=== PATIENT | male | born 1935 | race Caucasian/White ===

== ENCOUNTER 2019-07-18 17:48 | Inpatient (IN) | payer OTHER ==
[~2019-07-18] VITALS: Ht 177.8 cm; Wt 78.0 kg
--- NOTE | 2019-07-18 17:48 | NUR ---
PT PLACED IN BED 10 BY EMS.
--- NOTE | 2019-07-18 17:48 | NUR ---
RT AT BEDSIDE
[2019-07-18 17:54] VITALS: BP 134/95
[2019-07-18] MEDS ORDERED: DEXAMETHASONE 10 MG/ML VIAL IVP ONE (17:55)
--- NOTE | 2019-07-18 17:56 | NUR ---
XRAY AT BEDSIDE
[2019-07-18 17:58] VITALS: BP 139/73
--- NOTE | 2019-07-18 18:04 | NUR ---
LAB AT BEDSIDE
[2019-07-18] MEDS ORDERED: ATRN INH (18:06)
[2019-07-18] MEDS ORDERED: FLUT1DSK4 IH (18:06)
[2019-07-18] MEDS ORDERED: ACLI400A2 IH (18:06)
[2019-07-18] MEDS ORDERED: VITD1000 PO (18:06)
[2019-07-18] MEDS ORDERED: ZAFI10TA PO (18:06)
[2019-07-18] MEDS ORDERED: CARV6.25 PO (18:06)
[2019-07-18] MEDS ORDERED: ASPI-1718 PO (18:06)
[2019-07-18] MEDS ORDERED: OSC500 PO (18:06)
[2019-07-18] MEDS ORDERED: ISOS10TA9 PO (18:06)
[2019-07-18] MEDS ORDERED: TAMS0.4C96 PO (18:06)
[2019-07-18] MEDS ORDERED: FISH10005 PO (18:06)
[2019-07-18] MEDS ORDERED: [UNRECOGNIZED DRUG - CODE] PO (18:06)
[2019-07-18] MEDS ORDERED: ESCI20TA PO (18:06)
[2019-07-18] MEDS ORDERED: FINA5TAB1 PO (18:06)
[2019-07-18] MEDS ORDERED: GABA100C PO (18:06)
[2019-07-18] MEDS ORDERED: SIMV40TA1 PO (18:06)
[2019-07-18] MEDS ORDERED: PRON INH (18:06)
[2019-07-18] MEDS ORDERED: POTA8TER12 PO (18:06)
[2019-07-18] MEDS ORDERED: LISI5TAB18 PO (18:06)
--- NOTE | 2019-07-18 18:06 | NUR ---
BIBA FROM HOME C/O SOB APPROX 1 HOUR PRIOR TO ARRIVAL. PER EMS, PT WAS AT 75% RA AND THEN PLACED ON BIPAP. NOW AT 92%. PATIENT TOOK 4 ALBUTERL TX AT HOME AND RECIEVED 1 TX IN ROUTE BY EMS. 12 LEAD- NSR. TACHYPNEA. PERIPHERAL EDEMA TO LOWER EXTREMETIES. PT NOT PREVIOSLY INTUBATED. AA0X4. BED IS DOWN, LOCKED, BED RAIL X 2, ERMD TO SEE PT. PMH- ASTHMA AND CAD RX- SEE MED LIST
--- NOTE | 2019-07-18 18:10 | NUR ---
LUNGS DIMINISHED BILATERALLY. NON-PRODUCTIVE COUGH
[2019-07-18 18:21] LABS: BASOPHILS % (AUTO) 0.3 % (0.0-2.0); EOSINOPHILS # (AUTO) 0.1 K/uL (0-0.4); EOSINOPHILS % (AUTO) 0.7 % (0.0-4.0); HEMATOCRIT 41.6 % (36-52); HEMOGLOBIN 13.5 g/dL (12.0-18.0); LYMPHOCYTES # (AUTO) 1.1 K/uL (2.0-11.5); LYMPHOCYTES % (AUTO) 7.5 % (20.5-51.1); MEAN CORPUSCULAR HEMOGLOBIN 29 pg (27-31); MEAN CORPUSCULAR HGB CONC 32 g/dL (33-37); MONOCYTES # (AUTO) 0.6 K/uL (0.8-1.0); MONOCYTES % (AUTO) 3.9 % (1.7-9.3); NEUTROPHILS # (AUTO) 12.8 K/uL (1.8-7.7); NEUTROPHILS % (AUTO) 87.6 % (42.2-75.2); PLATELET COUNT (AUTO) 168 K/uL (140-450); RED BLOOD CELL COUNT(AUTO) 4.62 MIL/uL (4.20-6.10); RED CELL DISTRIBUTION WIDTH 14.5 % (11.6-13.7); WHITE BLOOD COUNT (AUTO) 14.6 K/uL (4.8-10.8)
--- NOTE | 2019-07-18 18:27 | NUR ---
FAMILY AT BEDSIDE
[2019-07-18] MEDS ORDERED: FUROSEMIDE 40 MG/4 ML VIAL IVP ONE (18:30)
[2019-07-18 18:33] LABS: ANION GAP 9.8 (8-16); CARBON DIOXIDE 27.8 mmol/L (21-32); CHLORIDE 108 mmol/L (98-107); CREATININE 0.7 mg/dL (0.7-1.3); GLUCOSE 159 mg/dL (74-106); POTASSIUM 3.6 mmol/L (3.5-5.1); SODIUM SERUM 142 mmol/L (136-145); UREA NITROGEN, BLOOD 17 mg/dL (7-18)
[2019-07-18 18:38] LABS: ALBUMIN 3.2 g/dL (3.4-5.0); ASPARTATE AMINOTRANSFERASE 14 U/L (15-37); TOTAL BILIRUBIN 0.4 mg/dL (0.0-1.0)
--- NOTE | 2019-07-18 18:53 | NUR ---
DR MORALES AT BEDSIDE SPEAKING WITH FAMILY
--- NOTE | 2019-07-18 18:54 | NUR ---
PMH- ASTHMA, COPD, CAD
--- NOTE | 2019-07-18 19:11 | NUR ---
REPORT GIVEN TO CHRISTIANNE SIDHU
--- NOTE | 2019-07-18 19:12 | NUR ---
REPORT RECEIVED FROM NAHUM CHAVEZ. TRANSFER OF CARE AT THIS TIME.
--- NOTE | 2019-07-18 19:13 | NUR ---
PT AWAKE, A/O X 4. BIPAP MASK IN PLACE. SPO2 97%. PT DENIES DISCOMFORT/DISTRESS AT THIS TIME. GIVES THUMBS UP RESPONSE. AT BEDSIDE.
--- NOTE | 2019-07-18 20:00 | NUR ---
PT PRODUCED DARK YELLOW URINE IN URINAL. URINE SPECIMEN COLLECTED.
[2019-07-18] MEDS ORDERED: HYDROcodone/APAP 7.5/325 MG 1 TAB PO PRN (20:30)
[2019-07-18] MEDS ORDERED: ONDANSETRON 4 MG/2 ML VIAL IVP PRN (20:30)
--- NOTE | 2019-07-18 20:30 | NUR ---
PT RESTING IN BED WITH VSS. BIPAP IN PLACE. DENIES PAIN, DISTRESS AT THIS TIME.
--- NOTE | 2019-07-18 21:00 | NUR ---
Patient will be admitted to care of Dr. Bryant. Admited to TELE. Will go to room 122A. Belongings list completed. Report to NAHUM Chavez.
--- NOTE | 2019-07-18 21:00 | NUR ---
TRANSFERRED PATIENT TO ROOM 122A ON BIPAP. IPAP12 EPAP5 CHANGED RATE FROM [address] ORDER. PT STABLE ON BIPAP AT THIS TIME
--- NOTE | 2019-07-18 21:02 | NUR ---
Patient arrived in unit via ronida, accompanied by two PACKAGE COLLECTOR's. Patient could not transfer from [facility] to bed independently. Patient A/Ox4, able to make needs know, Albanian and Samoan speaking. Introduced self, updated board, oriented patient to room and hospital environment. No SOB or distress noted, on Bi-pap machine, O2Sat at 94%. Iv site site on right hand, 20 gauge, saline locked. Skin intact. Bed in the lowest position, call light within reach. Initial assessment done. Will continue to monitor.
[2019-07-18 21:09] LABS: CHOL/HDL RATIO 2.3 (1-4.5); FREE T4 (FREE THYROXINE) 0.85 ng/dL (0.76-1.46); MAGNESIUM 1.8 mg/dL (1.8-2.4); PHOSPHORUS 2.8 mg/dL (2.5-4.9); THYROID STIMULATING HORMONE 2.98 uIU/mL (0.34-3.74)
[2019-07-18 21:21] LABS: APPEARANCE,URINE CLEAR (CLEAR); BILIRUBIN,URINE NEGATIVE (NEGATIVE); BLOOD, URINE NEGATIVE (NEGATIVE); COLOR,URINE YELLOW (YELLOW); LEUKOCYTE ESTERASE ,URINE NEGATIVE (NEGATIVE); NITRITE, URINE NEGATIVE (NEGATIVE); UGLUCOSE NEGATIVE (NEGATIVE)
[2019-07-18] MEDS: DOCUSATE SODIUM 100 MG GELCAP PO SCH (21:22)
[2019-07-18 21:40] LABS: PROTHROMBIN TIME 9.9 secs (10.8-13.4)
--- NOTE | 2019-07-18 21:55 | NUR ---
Due meds given, tolerated well.
[2019-07-18] MEDS ORDERED: cefTRIAXone 1,000 MG VIAL ONE (22:34)
[2019-07-18] MEDS: ALBUTEROL SULFATE/IPRATROPIU 3 ML SOL IH PRN (22:48)
--- NOTE | 2019-07-18 23:55 | NUR ---
Vitals take, no SOB or distress noted.
[2019-07-19] VITALS: BP 137/81
--- NOTE | 2019-07-19 02:10 | NUR ---
Rounds done; patient asleep, eyes closed, visible chest rise and fall noted.
[2019-07-19 04:00] VITALS: BP 145/82
[2019-07-19] MEDS: methylPREDNISolone SS 125 MG/2 ML VIAL IVP SCH ×3 (04:10→21:49)
--- NOTE | 2019-07-19 04:25 | NUR ---
Vitals taken, no distress noted. Patient sleeping, visible chest rise and fall noted.
[2019-07-19] MEDS ORDERED: ALBUTEROL SULFATE/IPRATROPIU 3 ML SOL IH SCH (06:00)
--- NOTE | 2019-07-19 06:15 | NUR ---
Vitals stable, due meds given. Will endorse to AM shift RN for continuity of care.
--- NOTE | 2019-07-19 06:44 | NUR ---
REC' PT ON MARIA ESTHER V60 BIPAP SETTINGS 12\5 RR 12 FIO1 35% ALARMS ON AND AUDIBLE AND AMBU BAG AT HOB BIPAP IS PLUGGED INTO RED OUTLET, I\L TX GIVEN WITH DUONEB 3ML WITH NO ADVERSE REACTION POST TX ,B\S ARE DIMINISHED BILATERALLY PT IS WEARING MED FACE MASK WITH PROTETIC GEL IN PLACE AND PT IS AWAKE AND ALERT WITH NO SIGNS OF DISTRESS NOTED AT THIS TIME
--- NOTE | 2019-07-19 07:10 | NUR ---
PT RECEIVED FROM NIGHT RN. PT IN BED, AAOX4. BIPAP MASK ON O2 SAT 96%. NO SIGNS OF ACUTE DISTRESS AT THIS TIME. WILL CONTINUE CARE.
[2019-07-19 08:00] VITALS: BP 126/75
--- NOTE | 2019-07-19 08:27 | NUR ---
PT OFF BIPAP AND ON 5L OXYMIZER O2 SAT 93% AND HR 87 NO SIGNS OF DISTRESS NOTED
[2019-07-19] MEDS ORDERED: SALMETEROL IH SCH (09:00)
[2019-07-19] MEDS ORDERED: FLUTICASONE IH SCH (09:00)
--- NOTE | 2019-07-19 09:00 | NUR ---
PT IN BED. OXYMIZER SET TO 7L, SPO2 96%. BREATHING EVEN AND UNLABORED. NO SIGNS OF ACUTE DISTRESS AT THIS TIME.
[2019-07-19] MEDS: ISOSORBIDE DINITRATE 10 MG TAB PO SCH ×2 (09:18→21:58)
[2019-07-19] MEDS: CHOLECALCIFEROL 1,000 IU TAB PO SCH (09:19)
[2019-07-19] MEDS: FINASTERIDE 5 MG TAB PO SCH (09:19)
[2019-07-19] MEDS: ESCITALOPRAM 20 MG TAB PO SCH ×2 (09:19→21:51)
[2019-07-19] MEDS: TAMSULOSIN 0.4 MG CAP PO SCH ×2 (09:19→21:52)
[2019-07-19] MEDS: DOCUSATE SODIUM 100 MG GELCAP PO SCH ×2 (09:20→21:52)
[2019-07-19] MEDS: GABAPENTIN 100 MG CAP PO SCH ×2 (09:20→21:51)
[2019-07-19] MEDS: CARVEDILOL 6.25 MG TAB PO SCH ×2 (09:20→16:55)
[2019-07-19] MEDS: LACTOBACILLUS RHAMNOSUS GG 1 EACH CAP PO SCH (09:20)
[2019-07-19] MEDS: ASPIRIN 81 MG TAB.CHEW PO SCH (09:21)
[2019-07-19] MEDS: SIMVASTATIN 40 MG TAB PO SCH (09:21)
[2019-07-19] MEDS: CALCIUM CARBONATE 500 MG TAB PO SCH (09:21)
[2019-07-19] MEDS: LISINOPRIL 5 MG TAB PO SCH (09:21)
--- NOTE | 2019-07-19 09:35 | NUR ---
PATIENT HAS BEEN SCREENED AND CATEGORIZED MODERATE NUTRITION RISK. PATIENT WILL BE SEEN WITHIN 3-5 DAYS OF ADMISSION. 07/21/19-07/23/[address]
[2019-07-19] MEDS: POTASSIUM CHLORIDE 8 MEQ TABER PO SCH (10:43)
--- NOTE | 2019-07-19 10:45 | NUR ---
PT SLEEPING, OXYMIZER SET TO 7 L, BREATHING EVEN AND UNLABORED, SPO2 99%. NO SIGNS OF ACUTE DISTRESS. WILL CONTINUE TO MONITOR.
[2019-07-19 11:41] LABS: HEMATOCRIT 42.7 % (36-52); HEMOGLOBIN 13.8 g/dL (12.0-18.0); MEAN CORPUSCULAR HEMOGLOBIN 29 pg (27-31); MEAN CORPUSCULAR HGB CONC 32 g/dL (33-37); MEAN CORPUSCULAR VOLUME 89.9 fL (80-94); PLATELET COUNT (AUTO) 177 K/uL (140-450); RED BLOOD CELL COUNT(AUTO) 4.75 MIL/uL (4.20-6.10); RED CELL DISTRIBUTION WIDTH 14.5 % (11.6-13.7); WHITE BLOOD COUNT (AUTO) 13.2 K/uL (4.8-10.8)
[2019-07-19 12:00] VITALS: BP 160/80
[2019-07-19 12:10] LABS: ANION GAP 11.7 (8-16); CARBON DIOXIDE 30.9 mmol/L (21-32); CHLORIDE 104 mmol/L (98-107); CREATININE 0.6 mg/dL (0.7-1.3); GLUCOSE 140 mg/dL (74-106); POTASSIUM 3.6 mmol/L (3.5-5.1); SODIUM SERUM 143 mmol/L (136-145); UREA NITROGEN, BLOOD 17 mg/dL (7-18)
[2019-07-19 12:16] LABS: MAGNESIUM 1.9 mg/dL (1.8-2.4); PHOSPHORUS 2.4 mg/dL (2.5-4.9)
--- NOTE | 2019-07-19 12:30 | NUR ---
PT EATING LUNCH. OXYMIZER SET TO 7 L, BREATHING EVEN AND UNLABORED, SPO2 99%. NO SIGNS OF ACUTE DISTRESS. WILL CONTINUE TO MONITOR.
[2019-07-19 12:40] LABS: BASOPHILS % (MANUAL) 0 % (0-2); EOSINOPHILS % (MANUAL) 0 % (0-4); LYMPHOCYTES % (MANUAL) 5 % (20-46); MONOCYTES % (MANUAL) 2 % (5-12)
--- NOTE | 2019-07-19 12:45 | NUR ---
PT BROUGHT HOME MEDICATION THEOPHYLLINE 300 MG TAB (7 TABS IN BOTTLE). PT GIVEN TICKET CONFIRMATION OF HOME MEDS, MEDICATION WILL BE TAKEN TO PHARMACY.
[2019-07-19] MEDS: ALBUTEROL SULFATE/IPRATROPIU 3 ML SOL IH SCH ×2 (13:11→19:19)
--- NOTE | 2019-07-19 14:00 | NUR ---
PT IN BED READING NEWS PAPER. OXYMIZER SET TO 7 L, BREATHING EVEN AND UNLABORED, SPO2 99%. NO SIGNS OF ACUTE DISTRESS. WILL CONTINUE TO MONITOR.
[2019-07-19 16:00] VITALS: BP 169/69
[2019-07-19] MEDS ORDERED: AZITHROMYCIN 500 MG in DEXTROSE 5% 250 ML IV SCH (16:00)
[2019-07-19] MEDS ORDERED: FUROSEMIDE 40 MG/4 ML VIAL IVP SCH (16:15)
[2019-07-19] MEDS: MONTELUKAST SODIUM 10 MG TAB PO SCH (16:55)
--- NOTE | 2019-07-19 17:35 | NUR ---
PT AMBULATED TO RESTROOM. PT SHORT OF BREATH UPON RETURN TO BED. SPO2 85%. OXYMIZER INCREASED TO 9L AND SPO2 INCREASED TO 95%. BREATHING DEEPLY, RR 24/MIN, WILL CONTINUE TO ASSESS.
--- NOTE | 2019-07-19 18:00 | NUR ---
OXYMIZER REDUCED TO 7L, PT SPO2 STAYED AT 96%. PT BREATHING EVEN AND UNLABORED. PT WATCHING TV. NO SIGNS OF ACUTE DISTRESS AT THIS TIME.
[2019-07-19] MEDS: BUDESONIDE 0.5 MG/2 ML NEBU INH SCH (19:19)
--- NOTE | 2019-07-19 19:30 | NUR ---
PT ENDORSED TO NIGHT RN. PT IN BED, RESPIRATORY AT BEDSIDE. PT DISPLAYS NO SIGNS OF ACUTE DISTRESS AT THIS TIME.
[2019-07-19] MEDS: MELATONIN 3 MG TAB PO SCH (21:50)
[2019-07-19] MEDS: ACETAMINOPHEN 325 MG TAB PO PRN (21:50)
[2019-07-20 01:50] VITALS: BP 146/73
[2019-07-20] MEDS: methylPREDNISolone SS 40 MG/ML VIAL IVP SCH ×3 (05:18→20:56)
[2019-07-20 06:28] VITALS: BP 153/55
[2019-07-20] MEDS: ALBUTEROL SULFATE/IPRATROPIU 3 ML SOL IH SCH ×3 (06:52→19:14)
[2019-07-20] MEDS: BUDESONIDE 0.5 MG/2 ML NEBU INH SCH ×2 (07:03→19:14)
--- NOTE | 2019-07-20 07:07 | NUR ---
PT RECEIVED FROM NIGHT RNAMANDA. PT IN BED SLEEPING. BREATHING EVEN AND UNLABORED ON ROOM AIR. NO SIGNS OF ACUTE DISTRESS AT THIS TIME. WILL CONTINUE TO ASSESS.
--- NOTE | 2019-07-20 07:08 | NUR ---
DECREASED OXYMIZER TO 4L
--- NOTE | 2019-07-20 07:50 | NUR ---
PT EATING, SPO2 DECREASED TO 80-84%. OXYMIZER INCREASED TO 9L, PT O2 SAT 93%. WILL CONTINUE TO ASSESS.
[2019-07-20] MEDS: ESCITALOPRAM 20 MG TAB PO SCH ×2 (08:33→20:56)
[2019-07-20] MEDS: CALCIUM CARBONATE 500 MG TAB PO SCH (08:34)
[2019-07-20] MEDS: ISOSORBIDE DINITRATE 10 MG TAB PO SCH ×2 (08:34→20:54)
[2019-07-20] MEDS: CHOLECALCIFEROL 1,000 IU TAB PO SCH (08:34)
[2019-07-20] MEDS: ASPIRIN 81 MG TAB.CHEW PO SCH (08:34)
[2019-07-20] MEDS: SIMVASTATIN 40 MG TAB PO SCH (08:34)
[2019-07-20] MEDS: LACTOBACILLUS RHAMNOSUS GG 1 EACH CAP PO SCH (08:34)
[2019-07-20] MEDS: DOCUSATE SODIUM 100 MG GELCAP PO SCH ×2 (08:35→20:55)
[2019-07-20] MEDS: CARVEDILOL 6.25 MG TAB PO SCH ×2 (08:35→16:26)
[2019-07-20] MEDS: GABAPENTIN 100 MG CAP PO SCH ×2 (08:35→20:55)
[2019-07-20] MEDS: POTASSIUM CHLORIDE 8 MEQ TABER PO SCH (08:35)
[2019-07-20] MEDS: FINASTERIDE 5 MG TAB PO SCH (08:35)
[2019-07-20] MEDS: TAMSULOSIN 0.4 MG CAP PO SCH ×2 (08:35→20:54)
[2019-07-20] MEDS: LISINOPRIL 5 MG TAB PO SCH (08:36)
[2019-07-20] MEDS: THEOPHYLLINE 300 MG PO SCH (08:36)
--- NOTE | 2019-07-20 08:50 | NUR ---
PT O2 SAT WAS 96% WITH OXYMIZER AT 8 L. OXYMIZER DECREASED TO 6L. BREATHING EVEN AND UNLABORED. PT O2 SAT 95%. WILL CONTINUE TO MONITOR.
[2019-07-20] MEDS ORDERED: FUROSEMIDE 40 MG/4 ML VIAL IVP SCH (09:00)
--- NOTE | 2019-07-20 10:00 | NUR ---
PT REPORTED FEELING SOB. BREATHING EVEN AND UNLABORED. SPO2 97% ON 6L. LUNG SOUNDS CLEAR. PT REQUESTED BREATHING TREATMENT. NO SIGNS OF ACUTE DISTRESS AT THIS TIME. RT CONTACTED AND WILL ADMINISTER PRN BREATHING TREATMENT.
[2019-07-20] MEDS: ALBUTEROL SULFATE/IPRATROPIU 3 ML SOL IH PRN (10:03)
[2019-07-20 12:00] VITALS: BP 122/58
[2019-07-20 12:05] LABS: BASOPHILS % (AUTO) 0.1 % (0.0-2.0); HEMATOCRIT 41.1 % (36-52); HEMOGLOBIN 13.1 g/dL (12.0-18.0); LYMPHOCYTES # (AUTO) 0.8 K/uL (2.0-11.5); MEAN CORPUSCULAR HEMOGLOBIN 29 pg (27-31); MEAN CORPUSCULAR HGB CONC 32 g/dL (33-37); MEAN CORPUSCULAR VOLUME 89.9 fL (80-94); MONOCYTES # (AUTO) 0.5 K/uL (0.8-1.0); MONOCYTES % (AUTO) 3.5 % (1.7-9.3); NEUTROPHILS # (AUTO) 12.6 K/uL (1.8-7.7); PLATELET COUNT (AUTO) 169 K/uL (140-450); RED BLOOD CELL COUNT(AUTO) 4.58 MIL/uL (4.20-6.10); RED CELL DISTRIBUTION WIDTH 15.2 % (11.6-13.7)
--- NOTE | 2019-07-20 12:15 | NUR ---
X-RAY AT BEDSIDE. PT SHOWS NO SIGNS OF ACUTE DISTRESS AT THIS TIME. WILL CONTINUE TO MONITOR
[2019-07-20 12:35] LABS: MAGNESIUM 1.9 mg/dL (1.8-2.4); PHOSPHORUS 2.8 mg/dL (2.5-4.9)
--- NOTE | 2019-07-20 13:00 | NUR ---
FAMILY AT BEDSIDE, PT ON 4L OXIMIZER O2SAT 95%. NO SIGNS OF ACUTE DISTRESS, BREATHING EVEN AND UNLABORED.
[2019-07-20 13:17] LABS: NEUTROPHILS % (AUTO) 90.5 % (42.2-75.2)
[2019-07-20 13:18] LABS: LYMPHOCYTES % (AUTO) 5.9 % (20.5-51.1)
[2019-07-20 13:22] LABS: ANION GAP 12.7 (8-16); CARBON DIOXIDE 30.9 mmol/L (21-32); CHLORIDE 103 mmol/L (98-107); CREATININE 0.7 mg/dL (0.7-1.3); GLUCOSE 136 mg/dL (74-106); POTASSIUM 3.6 mmol/L (3.5-5.1); SODIUM SERUM 143 mmol/L (136-145); UREA NITROGEN, BLOOD 22 mg/dL (7-18)
--- NOTE | 2019-07-20 14:00 | NUR ---
PT EATING AND SPO2 DROPPED TO 88%. OXIMIZER INCREASED TO 6 L AND SPO2 WENT UP TO 94%. NO SIGNS OF ACUTE DISTRESS. BREATHING EVEN AND UNLABORED.
[2019-07-20 16:00] VITALS: BP 140/70
[2019-07-20] MEDS: MONTELUKAST SODIUM 10 MG TAB PO SCH (16:26)
--- NOTE | 2019-07-20 18:00 | NUR ---
PT EATING DINNER. SPO2 88%. OXIMIZER INCREASED TO 7L AND SPO2 INCREASED TO 95%
--- NOTE | 2019-07-20 18:58 | NUR ---
SPO2 96% ON 7L OXIMIZER. BREATHING EVEN AND UNLABORED. NO SIGNS OF ACUTE DISTRESS. WILL ENDORSE TO BRAKE HOLDER.
--- NOTE | 2019-07-20 19:39 | NUR ---
RECEIVED PATIENT ON 7L OXYMIZER, PULSE OX SAT 97%. SCHEDULED BREATHING TREATMENTS ADMINISTERED. TOLERATED TREATMENTS WELL WITHOUT ADVERSE SIDE EFFECTS. ORAL RINSE DONE POST TX. PLACED PATIENT ON NASAL CANNULA AT 4L, PULSE OX SAT 93%. NO RESPIRATORY DISTRESS NOTED AT THIS TIME. CONTINUOUS PULSE OX ON AND FUNCTIONING. WILL CONTINUE TO MONITOR.
[2019-07-20] MEDS: ACETAMINOPHEN 325 MG TAB PO PRN (20:53)
[2019-07-20] MEDS: MELATONIN 3 MG TAB PO SCH (20:59)
[2019-07-21 01:14] VITALS: BP 143/69
--- NOTE | 2019-07-21 01:30 | NUR ---
TITRATED OXYGEN TO 3L, PULSE OX SAT 95%. RN NOTIFIED. NO RESPIRATORY DISTRESS NOTED. WILL CONTINUE TO MONITOR.
[2019-07-21] MEDS: methylPREDNISolone SS 40 MG/ML VIAL IVP SCH ×2 (05:37→12:21)
[2019-07-21 06:19] VITALS: BP 138/64
[2019-07-21 07:16] LABS: ANION GAP 9.4 (8-16); CARBON DIOXIDE 33.6 mmol/L (21-32); CHLORIDE 102 mmol/L (98-107); CREATININE 0.6 mg/dL (0.7-1.3); GLUCOSE 112 mg/dL (74-106); SODIUM SERUM 141 mmol/L (136-145); UREA NITROGEN, BLOOD 21 mg/dL (7-18)
[2019-07-21 07:17] LABS: BASOPHILS # (AUTO) 0.1 K/uL (0.00-0.22); BASOPHILS % (AUTO) 0.5 % (0.0-2.0); HEMATOCRIT 38.1 % (36-52); HEMOGLOBIN 12.5 g/dL (12.0-18.0); LYMPHOCYTES # (AUTO) 1.1 K/uL (2.0-11.5); LYMPHOCYTES % (AUTO) 8.2 % (20.5-51.1); MEAN CORPUSCULAR HEMOGLOBIN 29 pg (27-31); MEAN CORPUSCULAR HGB CONC 33 g/dL (33-37); MEAN CORPUSCULAR VOLUME 88.7 fL (80-94); MONOCYTES # (AUTO) 0.6 K/uL (0.8-1.0); MONOCYTES % (AUTO) 4.1 % (1.7-9.3); NEUTROPHILS # (AUTO) 12.1 K/uL (1.8-7.7); NEUTROPHILS % (AUTO) 87.2 % (42.2-75.2); PLATELET COUNT (AUTO) 177 K/uL (140-450); RED BLOOD CELL COUNT(AUTO) 4.29 MIL/uL (4.20-6.10); RED CELL DISTRIBUTION WIDTH 14.4 % (11.6-13.7); WHITE BLOOD COUNT (AUTO) 13.9 K/uL (4.8-10.8)
[2019-07-21] MEDS: BUDESONIDE 0.5 MG/2 ML NEBU INH SCH (07:27)
[2019-07-21] MEDS: ALBUTEROL SULFATE/IPRATROPIU 3 ML SOL IH SCH ×2 (07:27→13:03)
--- NOTE | 2019-07-21 07:30 | NUR ---
RECEIVED REPORT FROM BATCH UNIT TREATER NURSE, PATIENT IS IN STABLE CONDITION.
[2019-07-21 07:36] LABS: PHOSPHORUS 2.9 mg/dL (2.5-4.9)
[2019-07-21] MEDS: CARVEDILOL 6.25 MG TAB PO SCH (08:00)
[2019-07-21] MEDS: CALCIUM CARBONATE 500 MG TAB PO SCH (08:29)
[2019-07-21] MEDS: CHOLECALCIFEROL 1,000 IU TAB PO SCH (08:29)
[2019-07-21] MEDS: ASPIRIN 81 MG TAB.CHEW PO SCH (08:29)
[2019-07-21] MEDS: LACTOBACILLUS RHAMNOSUS GG 1 EACH CAP PO SCH (08:29)
[2019-07-21] MEDS: ESCITALOPRAM 20 MG TAB PO SCH (08:30)
[2019-07-21] MEDS: FINASTERIDE 5 MG TAB PO SCH (08:30)
[2019-07-21] MEDS: TAMSULOSIN 0.4 MG CAP PO SCH (08:30)
[2019-07-21] MEDS: SIMVASTATIN 40 MG TAB PO SCH (08:31)
[2019-07-21] MEDS: GABAPENTIN 100 MG CAP PO SCH (08:31)
[2019-07-21] MEDS: DOCUSATE SODIUM 100 MG GELCAP PO SCH (08:31)
[2019-07-21] MEDS: LISINOPRIL 5 MG TAB PO SCH (08:33)
[2019-07-21] MEDS: ISOSORBIDE DINITRATE 10 MG TAB PO SCH ×2 (08:34→12:21)
[2019-07-21] MEDS: POTASSIUM CHLORIDE 8 MEQ TABER PO SCH (08:35)
[2019-07-21] MEDS: THEOPHYLLINE 300 MG PO SCH (08:36)
--- NOTE | 2019-07-21 08:49 | NUR ---
PATIENT IS ALERT AND ORIENTED X4. MEDICATIONS GIVEN ORDERED. TOLERATED WELL. PATIENT IS RESTING COMFORTABLY IN BED. NO ACUTE DISTRESS NOTED. O2 ON AT 2L VIA NC. O2 SAT 100%. IV TO RIGHT HAND INTACT AND PATENT. WILL CONTINUE TO MONITOR.
--- NOTE | 2019-07-21 10:30 | NUR ---
PATIENT IS RESTING QUIETLY IN BED. HOB ELEVATED. O2 ON AT 2L VIA NC. O2 SAT AT 91%. DENIES SOB. RESPIRATION EVEN AND UNLABORED. CALL LIGHT WITHIN REACH.
[2019-07-21 12:00] VITALS: BP 164/76
--- NOTE | 2019-07-21 12:30 | NUR ---
MEDICATIONS GIVEN ORDERED. TOLERATED WELL. RIGHT HAND IV INTACT AND PATENT. PATIENT DENIES SOB, PAIN OR DISCOMFORT. CALL LIGHT WITHIN REACH.
[2019-07-21] MEDS ORDERED: METH4TAB3 PO (12:50)
[2019-07-21] MEDS ORDERED: AZIT250T3 PO (12:50)
--- NOTE | 2019-07-21 14:40 | NUR ---
PATIENT DISCHARGED TO HOME WITH VIA PRIVATE VEHICLE. NO ACUTE DISTRESS NOTED.
== END 2019-07-21 14:50 | disposition home or self-care (01) | DRG 871 ==
LOC: MED 17:48 → MTU 20:31
PROVIDERS: ADMIT General Practice; ATTEND General Practice
PROC: 5A09357 Assistance with Respiratory Ventilation, Less than 24 Consecutive Hours, Continuous Positive Airway Pressure (ICD-10-PCS; principal; 2019-07-18)
DX: A41.9 Sepsis, unspecified organism (principal); J96.21 Acute and chronic respiratory failure with hypoxia; J18.9 Pneumonia, unspecified organism; I50.43 Acute on chronic combined systolic (congestive) and diastolic (congestive) heart failure; J44.1 Chronic obstructive pulmonary disease with (acute) exacerbation; E44.0 Moderate protein-calorie malnutrition; J44.0 Chronic obstructive pulmonary disease with (acute) lower respiratory infection; I11.0 Hypertensive heart disease with heart failure; I25.10 Atherosclerotic heart disease of native coronary artery without angina pectoris; E66.9 Obesity, unspecified; J20.9 Acute bronchitis, unspecified; G62.9 Polyneuropathy, unspecified; F32.9 Major depressive disorder, single episode, unspecified; N40.0 Benign prostatic hyperplasia without lower urinary tract symptoms; Z68.24 Body mass index [BMI] 24.0-24.9, adult; Z79.899 Other long term (current) drug therapy; Z90.49 Acquired absence of other specified parts of digestive tract; Z95.1 Presence of aortocoronary bypass graft; Z87.891 Personal history of nicotine dependence
CPT/HCPCS: 36415; 36600; 71045; 80048; 80053; 80198; 81003; 82150; 82803; 83036; 83690; 83735; 83880; 84100; 84439; 84443; 84484; 85025; 85610; 85730; 87081; 87804; 93005; 93970; 94640; 94660; 96374; 96375; 97116; 97161-GP; 99285; J0456; J0696; J1100; J1644; J1940; J2920; J2930; J7030; J7060; J7620; J7626; Q0092

== ENCOUNTER 2023-01-01 15:23 | Inpatient (IN) | payer OTHER ==
[~2023-01-01] VITALS: Ht 172.7 cm; Wt 78.9 kg
[~2023-01-01 15:23] MED LIST: ACLI400A1 IH; ASPI-1822 PO; ATRN INH; AZIT250T3 PO; CARV6.25 PO; CHOL100084 PO; ESCI20TA PO; FINA5TAB1 PO; FISH10005 PO; FLUT1DSK4 IH; GABA100C PO; ISOS10TA9 PO; LISI5TAB18 PO; METH4TAB3 PO; OSC500 PO; POTA8TAB19 PO; PRON INH; SIMV-373 PO; TAMS0.4C96 PO; ZAFI10TA PO; [UNRECOGNIZED DRUG - CODE] PO
[2023-01-01] MEDS ORDERED: MORPHINE SULFATE 4 MG/ML SYR IVP ONE (15:40)
[2023-01-01] MEDS ORDERED: ONDANSETRON 4 MG/2 ML VIAL IVP ONE (15:40)
--- NOTE | 2023-01-01 15:45 | NUR ---
MICKEY ALS TO ER BED 11
[2023-01-01 15:50] VITALS: BP 126/58
[2023-01-01] MEDS ORDERED: NACL 0.9% 1,000 ML IV ONE (17:00)
[2023-01-01 17:05] LABS: BASOPHILS # (AUTO) 0.1 K/uL (0.00-0.22); BASOPHILS % (AUTO) 0.5 % (0.0-2.0); EOSINOPHILS # (AUTO) 0.1 K/uL (0-0.4); EOSINOPHILS % (AUTO) 0.6 % (0.0-4.0); HEMATOCRIT 37.7 % (36-52); HEMOGLOBIN 12.3 g/dL (12.0-18.0); LYMPHOCYTES # (AUTO) 0.9 K/uL (2.0-11.5); LYMPHOCYTES % (AUTO) 8.2 % (20.5-51.1); MEAN CORPUSCULAR HEMOGLOBIN 29 pg (27-31); MEAN CORPUSCULAR HGB CONC 33 g/dL (33-37); MEAN CORPUSCULAR VOLUME 87.7 fL (80-94); MONOCYTES # (AUTO) 0.8 K/uL (0.8-1.0); MONOCYTES % (AUTO) 6.6 % (1.7-9.3); NEUTROPHILS # (AUTO) 9.7 K/uL (1.8-7.7); NEUTROPHILS % (AUTO) 84.1 % (42.2-75.2); PLATELET COUNT (AUTO) 193 K/uL (140-450); WHITE BLOOD COUNT (AUTO) 11.5 K/uL (4.8-10.8)
[2023-01-01 17:26] LABS: PROTHROMBIN TIME 10.5 secs (10.8-13.4)
[2023-01-01 17:47] LABS: ALBUMIN 3.3 g/dL (3.4-5.0); ASPARTATE AMINOTRANSFERASE 17 U/L (15-37); CARBON DIOXIDE 35.2 mmol/L (21-32); CHLORIDE 98 mmol/L (98-107); CREATININE 0.7 mg/dL (0.6-1.3); GLUCOSE 110 mg/dL (74-106); POTASSIUM 3.2 mmol/L (3.5-5.1); SODIUM SERUM 137 mmol/L (136-145); TOTAL BILIRUBIN 0.5 mg/dL (0.0-1.0); UREA NITROGEN, BLOOD 14 mg/dL (7-18)
[2023-01-01] MEDS ORDERED: MORPHINE SULFATE 4 MG/ML SYR ONE (17:55)
[2023-01-01] MEDS ORDERED: ONDANSETRON 4 MG/2 ML VIAL ONE (17:55)
--- NOTE | 2023-01-01 19:43 | NUR ---
NGT INSERTION TO R NARE WITH 16 FR SALEM SUMP, PLACEMENT CONFIRMED BY AUSCULTATION, ASPIRATED 40 ML CLEAR LIQUID, NO TRAUMA NOTED. ATTACHED TO LOW INTERMITTENT SUCTION
--- NOTE | 2023-01-01 19:47 | NUR ---
pt in semi fowlers with R NG tube in place going intermittently on the suction. pt on NC 3L normally at home for COPD. pt answering questions appropriately. provided pericare for patient. pt had a soft unformed BM. No wounds noted on buttocks/coccyx. Safety measures are in place and attached to the ekg monitor.
[2023-01-01] MEDS ORDERED: AZITHROMYCIN 500 MG in DEXTROSE 5% 250 ML IV ONE (20:10)
[2023-01-01] MEDS ORDERED: DEXAMETHASONE 4 MG/ML VIAL IVP ONE (20:10)
[2023-01-01] MEDS ORDERED: cefTRIAXone 1,000 MG VIAL ONE (20:23)
[2023-01-01] MEDS ORDERED: AZITHROMYCIN 500 MG INJ VIAL IV ONE (21:22)
[2023-01-01 23:29] LABS: APPEARANCE,URINE CLEAR (CLEAR); BILIRUBIN,URINE NEGATIVE (NEGATIVE); BLOOD, URINE NEGATIVE (NEGATIVE); COLOR,URINE YELLOW (YELLOW); LEUKOCYTE ESTERASE ,URINE TRACE (NEGATIVE); NITRITE, URINE NEGATIVE (NEGATIVE); UGLUCOSE NEGATIVE (NEGATIVE)
[2023-01-01 23:42] LABS: RBC,URINE 0-5 /HPF (0-5)
[2023-01-02] MEDS ORDERED: NACL 0.9% 1,000 ML IV SCH
--- NOTE | 2023-01-02 00:16 | NUR ---
Patient will be admitted to care of Sary BRAR. Admited to Telemetry. Will go to [id number]. Belongings list completed. Report to Bg BENDER.
--- NOTE | 2023-01-02 00:57 | NUR ---
RECEIVED REPORT FROM ER NURSE FOR CONTINUITY OF CARE. PT AWAKE, ALERT AND ORIENTED X4. CURRENTLY RUNNING ON 3L NASAL CANULA, SATING BETWEEN 85-94%. PT HAS A LEFT AC 20 GAUGE RUNNING NS AT 100. OVERALL SKIN IS INTACT. NO COMPLAINTS OF PAIN AT THIS TIME. PT HAS STATED DIFFICULTY WITH URINATION. ORIENTED PT TO HOSPITAL ENVIRONMENT, SAFETY MEASURES IN PLACE, CALL LIGHT WITHIN REACH, WILL CONTINUE TO MONITOR.
[2023-01-02 04:00] VITALS: BP 156/83
[2023-01-02 07:11] LABS: BASOPHILS % (AUTO) 0.4 % (0.0-2.0); HEMATOCRIT 36.3 % (36-52); HEMOGLOBIN 11.9 g/dL (12.0-18.0); LYMPHOCYTES # (AUTO) 0.6 K/uL (2.0-11.5); LYMPHOCYTES % (AUTO) 6.1 % (20.5-51.1); MEAN CORPUSCULAR HEMOGLOBIN 29 pg (27-31); MEAN CORPUSCULAR HGB CONC 33 g/dL (33-37); MEAN CORPUSCULAR VOLUME 86.9 fL (80-94); MONOCYTES # (AUTO) 0.6 K/uL (0.8-1.0); NEUTROPHILS # (AUTO) 8.9 K/uL (1.8-7.7); NEUTROPHILS % (AUTO) 87.5 % (42.2-75.2); PLATELET COUNT (AUTO) 201 K/uL (140-450); RED BLOOD CELL COUNT(AUTO) 4.18 MIL/uL (4.20-6.10); RED CELL DISTRIBUTION WIDTH 14.5 % (11.6-13.7); WHITE BLOOD COUNT (AUTO) 10.2 K/uL (4.8-10.8)
[2023-01-02 07:15] LABS: ANION GAP 9.1 (8-16); CHLORIDE 96 mmol/L (98-107); CREATININE 0.6 mg/dL (0.6-1.3); GLUCOSE 114 mg/dL (74-106); POTASSIUM 3.1 mmol/L (3.5-5.1); SODIUM SERUM 136 mmol/L (136-145); UREA NITROGEN, BLOOD 12 mg/dL (7-18)
[2023-01-02 08:00] VITALS: BP 165/96
--- NOTE | 2023-01-02 09:27 | NUR ---
PATIENT HAS BEEN SCREENED AND CATEGORIZED MODERATE NUTRITION RISK. PATIENT WILL BE SEEN WITHIN 3-5 DAYS OF ADMISSION. REVIEWED BY LEIGHTON WILSON RD
[2023-01-02] MEDS ORDERED: ALBUTEROL HFA MDI 90 MCG/ACTUATION 8 GM INH PRN (09:35)
[2023-01-02] MEDS ORDERED: AZITHROMYCIN 500 MG in DEXTROSE 5% 250 ML IV SCH (10:00)
[2023-01-02] MEDS ORDERED: ONDANSETRON 4 MG/2 ML VIAL IVP PRN (10:30)
[2023-01-02] MEDS ORDERED: ACETAMINOPHEN 325 MG TAB PO PRN (10:30)
[2023-01-02] MEDS ORDERED: HYDROcodone/APAP 7.5/325 MG 1 TAB PO PRN (10:30)
--- NOTE | 2023-01-02 11:00 | NUR ---
Patient has order for Dueñas Catheter. Earlier, staff nurse placed F/Cath. to gravity x1 attempt. Pt tolerated well. Urine output by this time was 2200ml and clemente-tea colored. No cloudiness noted; no particulate matter or odor noted. Urine dark but clear.
[2023-01-02] MEDS: NACL 0.9% 1,000 ML IV SCH (11:55)
[2023-01-02 12:00] VITALS: BP 129/85
[2023-01-02 12:04] LABS: CHOL/HDL RATIO 1.9 (1-4.5); FREE T4 (FREE THYROXINE) 1.05 ng/dL (0.76-1.46); PHOSPHORUS 1.9 mg/dL (2.5-4.9); THYROID STIMULATING HORMONE 2.15 uIU/mL (0.34-3.74)
[2023-01-02 12:35] LABS: PROTHROMBIN TIME 10.7 secs (10.8-13.4)
--- NOTE | 2023-01-02 13:58 | NUR ---
PT PULLED OUT NGT - DR SERNA NOTIFIED AND GAVE OK FOR D/C. PT ALSO PULLED OUT SALINE LOCK. WILL ATTEMPT TO RESTART.
--- NOTE | 2023-01-02 14:02 | NUR ---
PT'S SPOUSE JUST CALLED AND ALERTED STAFF THAT SHE IS PRIMARY PROVIDER OF HEALTH NEEDS AT HOME AND THAT SHE IS SICK AND TESTED POSITIVE TWICE FOR COVID. PT'S SPOUSE ASKED THAT THIS INFO BE FORWARDED TO PT.
[2023-01-02] MEDS: LACTULOSE 20 GM/30 ML UDC PO SCH ×2 (14:35→20:35)
[2023-01-02] MEDS ORDERED: LACTULOSE 20 GM/30 ML UDC PO ONE (14:35)
[2023-01-02] MEDS ORDERED: remdesivir COMMUNICATION ORDER 1 EA MISC MC PRN (18:20)
--- NOTE | 2023-01-02 19:50 | NUR ---
RECEIVED ENDORSEMENT FROM DAY SHIFT NURSE FOR CONTINUITY OF CARE. PT AWAKE, ALERT AND ORIENTED X3. CURRENTLY RUNNING ON 3L NASAL CANULA, SATING AT 96%. PT HAS IV SITE AT LEFT FOREARM, RUNNING NS AT 100 ML/HR. OVERALL SKIN IS INTACT. NO COMPLAINTS OF PAIN AT THIS TIME BUT PT DOES REPORT N/V. ROS NOW IN PLACE. SAFETY MEASURES IN PLACE, CALL LIGHT WITHIN REACH, WILL CONTINUE TO MONITOR.
--- NOTE | 2023-01-02 19:51 | NUR ---
Patient's Plan of Care was discussed and reviewed with NAPOLEON: KENNY
[2023-01-02 20:00] VITALS: BP 151/65
[2023-01-02] MEDS: DOCUSATE SODIUM 100 MG GELCAP PO SCH (20:27)
[2023-01-02] MEDS: ISOSORBIDE DINITRATE 10 MG TAB PO SCH (20:29)
[2023-01-02] MEDS: ESCITALOPRAM 20 MG TAB PO SCH (20:31)
[2023-01-02] MEDS: carvediloL 6.25 MG TAB PO SCH (20:32)
[2023-01-02] MEDS: GABAPENTIN 100 MG CAP PO SCH (20:40)
[2023-01-02] MEDS: TAMSULOSIN 0.4 MG CAP PO SCH (20:40)
[2023-01-02] MEDS: ZINC SULF 220 MG CAP PO SCH (20:41)
[2023-01-02] MEDS ORDERED: FLUTICASONE IH SCH (21:00)
[2023-01-02] MEDS ORDERED: SALMETEROL IH SCH (21:00)
[2023-01-02] MEDS: IPRATROPIUM 0.02% 0.5 MG/2.5 ML NEBU INH SCH (21:00)
[2023-01-02] MEDS ORDERED: ZAFIRLUKAST 20 MG PO SCH (21:00)
--- NOTE | 2023-01-02 21:20 | NUR ---
SCHEDULED MEDICATIONS ADMINISTERED WITH NO COMPLICATIONS. ZOFRAN IVP PRN ADMINISTERED BY POWER SIDHU FOR NAUSEA. WILL CONTINUE TO MONITOR.
--- NOTE | 2023-01-02 21:42 | NUR ---
PULLED IPRATROPIUM FROM PIXUS AND OPENED BUT PT REFUSED BREATHING TREATMENT WITH RT. RECORDED WASTE WITH NISHANT FROM RT.
--- NOTE | 2023-01-02 22:57 | NUR ---
PT STABLE IN BED, SATING AT 96%. REPORTS NO PAIN OR NAUSEA AT THIS TIME, WILL CONTINUE TO MONITOR.
[2023-01-03] VITALS: BP 124/72
[2023-01-03 04:00] VITALS: BP 143/115
--- NOTE | 2023-01-03 06:29 | NUR ---
PT ASLEEP AT THIS TIME SATING AT 99%. 300 ML WAS TAKEN FROM SOMMER. PT HAD 1 BM THIS MORNING. PT IS STABLE AT THIS TIME, WILL ENDORSE TO DAY SHIFT NURSE FOR CONTINUITY OF CARE.
[2023-01-03] MEDS: NACL 0.9% 1,000 ML IV SCH (06:30)
[2023-01-03] MEDS ORDERED: remdesivir CLINICAL MONITORING 1 EA MISC MC PRN (07:15)
[2023-01-03 07:22] LABS: BASOPHILS % (AUTO) 0.6 % (0.0-2.0); EOSINOPHILS # (AUTO) 0.1 K/uL (0-0.4); EOSINOPHILS % (AUTO) 1.5 % (0.0-4.0); HEMATOCRIT 34.6 % (36-52); HEMOGLOBIN 11.2 g/dL (12.0-18.0); LYMPHOCYTES % (AUTO) 14.6 % (20.5-51.1); MEAN CORPUSCULAR HEMOGLOBIN 29 pg (27-31); MEAN CORPUSCULAR HGB CONC 32 g/dL (33-37); MEAN CORPUSCULAR VOLUME 88.1 fL (80-94); MONOCYTES # (AUTO) 0.7 K/uL (0.8-1.0); MONOCYTES % (AUTO) 10.3 % (1.7-9.3); NEUTROPHILS # (AUTO) 5.1 K/uL (1.8-7.7); PLATELET COUNT (AUTO) 194 K/uL (140-450); RED BLOOD CELL COUNT(AUTO) 3.92 MIL/uL (4.20-6.10); RED CELL DISTRIBUTION WIDTH 14.3 % (11.6-13.7); WHITE BLOOD COUNT (AUTO) 6.9 K/uL (4.8-10.8)
[2023-01-03 07:42] LABS: ALBUMIN 3.2 g/dL (3.4-5.0); ANION GAP 4.8 (8-16); ASPARTATE AMINOTRANSFERASE 6 U/L (15-37); CARBON DIOXIDE 38.5 mmol/L (21-32); CHLORIDE 99 mmol/L (98-107); CREATININE 0.6 mg/dL (0.6-1.3); GLUCOSE 94 mg/dL (74-106); LACTATE DEHYDROGENASE 134 U/L (85-227); MAGNESIUM 2.2 mg/dL (1.8-2.4); PHOSPHORUS 2.9 mg/dL (2.5-4.9); POTASSIUM 3.3 mmol/L (3.5-5.1); SODIUM SERUM 139 mmol/L (136-145); TOTAL BILIRUBIN 0.5 mg/dL (0.0-1.0); UREA NITROGEN, BLOOD 14 mg/dL (7-18)
[2023-01-03 08:00] VITALS: BP 133/64
[2023-01-03] MEDS: ALBUTEROL 0.083% 2.5 MG/3 ML NEBU INH PRN ×2 (08:36→20:38)
[2023-01-03] MEDS: THEOPHYLLINE 300 MG TABER PO SCH (09:00)
[2023-01-03] MEDS: DOCUSATE SODIUM 100 MG GELCAP PO SCH ×2 (09:00→21:18)
[2023-01-03] MEDS: CHOLECALCIFEROL 1,000 IU TAB PO SCH (10:21)
[2023-01-03] MEDS: AZITHROMYCIN 250 MG TAB PO SCH (10:21)
[2023-01-03] MEDS: ZINC SULF 220 MG CAP PO SCH ×2 (10:21→21:16)
[2023-01-03] MEDS: ASCORBIC ACID 500 MG TAB PO SCH (10:22)
[2023-01-03] MEDS: VITAMIN D 400 IU TAB PO SCH (10:22)
[2023-01-03] MEDS: FINASTERIDE 5 MG TAB PO SCH (10:22)
[2023-01-03] MEDS: CALCIUM CARBONATE 500 MG TAB PO SCH (10:22)
[2023-01-03] MEDS: ESCITALOPRAM 20 MG TAB PO SCH ×2 (10:23→21:17)
[2023-01-03] MEDS: TAMSULOSIN 0.4 MG CAP PO SCH ×2 (10:23→21:17)
[2023-01-03] MEDS: lisinopriL 5 MG TAB PO SCH (10:24)
[2023-01-03] MEDS: POTASSIUM CHLORIDE 8 MEQ TABER PO SCH (10:24)
[2023-01-03] MEDS: ASPIRIN 81 MG TAB.CHEW PO SCH (10:24)
[2023-01-03] MEDS: carvediloL 6.25 MG TAB PO SCH ×2 (10:25→21:17)
[2023-01-03] MEDS: ISOSORBIDE DINITRATE 10 MG TAB PO SCH ×2 (10:25→21:16)
[2023-01-03] MEDS: GABAPENTIN 100 MG CAP PO SCH ×2 (10:26→21:15)
[2023-01-03] MEDS: PANTOPRAZOLE 40 MG INJ VIAL IVP SCH (10:27)
[2023-01-03] MEDS: LACTULOSE 20 GM/30 ML UDC PO SCH ×2 (10:27→21:10)
[2023-01-03] MEDS ORDERED: REMDESIVIR. 200 MG in NACL 0.9% 100 ML IV SCH (11:00)
[2023-01-03 12:00] VITALS: BP 129/67
--- NOTE | 2023-01-03 13:30 | NUR ---
DC PLANNING ASSESSMENT COMPLETE PLEASE REFER TO ASSESSMENT FOR ADDITIONAL DETAILS PT CURRENTLY POSITIVE FOR COVID-19 THEREFORE, COLLAT INFO GATHERED FROM PTS DAUGHTER PT IS AN 87 YR OLD MALE ADMITTED TO [facility] FROM HOME WITH DX OF SMALL BOWEL OBSTRUCTION AND COVID. PT HAS PAST MEDICAL HX OF COPD ON 2 TO 3 L AT HOME OXYGEN, TRIPLE BYPASS SURGERY IN 1990, HYPERTENSION, HIGH CHOLESTEROL, CHF, DIFFICULTY HEARING. PT IS REPORTED TO UTILIZE , HOSPITAL BED, , RAISED TOILET AND IS REPORTED TO REQUIRE ASSISTANCE WITH ADL'S PT RESIDES IN A SINGLE STORY HOME WITH HIS DAUGHTER, AT THE ADDRESS LISTED ON FILE. PT CURRENTLY HAS A PT EVAL. PENDING. TENTATIVE DC PLAN IS FOR PT TO RETURN HOME PENDING PT EVAL AND PT RECOMMENDATIONS. Addendum: 01/04/23 at 1606 by Sergio Julien SS Amended: Links added.
[2023-01-03] MEDS: APIXABAN 2.5 MG TAB PO SCH ×2 (14:00→21:18)
[2023-01-03 16:00] VITALS: BP 131/82
--- NOTE | 2023-01-03 18:46 | NUR ---
PATIENT REMAINS STABLE AT THIS TIME. NO ACUTE DISTRESS. CONTINUE ON O2 @2-3LPM VIA NC TOLERATING WELL. DR. JOHNSON AND DR. DENNIS SEEN THE PATIENT. WILL CONTINUE PLAN OF CARE.
--- NOTE | 2023-01-03 19:30 | NUR ---
RECEIVED REPORT FROM DAY SHIFT NURSE BONITA FOR CONTINUITY OF CARE. PATIENT IS A&O X2-3. PATIENT IS ON NC 2L, BREATHING IS NORMAL WITH SYMMETRICAL RISE AND FALL OF CHEST. IV IS A 22G LFA, RUNNING NS AT 50. PATIENT IS AWAKE, LYING SEMI-FOWLERS POSITION. BED IS IN LOWEST POSITION, WHEELS LOCKED, CALL LIGHT IN PLACE. WILL CONTINUE TO OBSERVE PATIENT.
[2023-01-03 20:00] VITALS: BP 153/66
[2023-01-03] MEDS: SIMVASTATIN 40 MG TAB PO SCH (21:17)
--- NOTE | 2023-01-03 22:00 | NUR ---
PATIENT'S MEDICATION WAS ADMINISTERED. PATIENT TOLERATED WELL, WITHOUT ANY ISSUES WITH SWALLOWING. BREATHING IS NORMAL WITH SYMMETRICAL RISE AND FALL OF CHEST. WILL CONTINUE TO OBSERVE PATIENT.
[2023-01-03] MEDS: IPRATROPIUM 0.02% 0.5 MG/2.5 ML NEBU INH SCH (23:27)
[2023-01-04] VITALS: BP 91/45
[2023-01-04] MEDS: NACL 0.9% 1,000 ML IV SCH ×2 (02:30→22:30)
--- NOTE | 2023-01-04 02:55 | NUR ---
PATIENT HAS BEEN SLEEPING THROUGHOUT THE NIGHT. IV PUMP IS STILL RUNNING. BREATHING IS NORMAL WITH SYMMETRICAL RISE AND FALL OF CHEST. WILL CONTINUE TO OBSERVE PATIENT.
[2023-01-04 04:00] VITALS: BP 150/72
--- NOTE | 2023-01-04 04:00 | NUR ---
PATIENT'S VITALS WERE OBTAINED AND CATHETER WAS EMPTIED. PATIENT HAD 400ML URINE OUT. PATIENT HAD NO BM. BREATHING WAS NORMAL WITH SYMMETRICAL RISE AND FALL OF CHEST. WILL CONTINUE TO OBSERVE PATIENT.
[2023-01-04 07:14] LABS: BASOPHILS % (AUTO) 0.5 % (0.0-2.0); EOSINOPHILS # (AUTO) 0.1 K/uL (0-0.4); EOSINOPHILS % (AUTO) 2.4 % (0.0-4.0); HEMATOCRIT 32.1 % (36-52); HEMOGLOBIN 10.4 g/dL (12.0-18.0); LYMPHOCYTES # (AUTO) 1.1 K/uL (2.0-11.5); LYMPHOCYTES % (AUTO) 19.2 % (20.5-51.1); MEAN CORPUSCULAR HEMOGLOBIN 29 pg (27-31); MEAN CORPUSCULAR HGB CONC 32 g/dL (33-37); MEAN CORPUSCULAR VOLUME 88.1 fL (80-94); MONOCYTES # (AUTO) 0.5 K/uL (0.8-1.0); MONOCYTES % (AUTO) 8.4 % (1.7-9.3); NEUTROPHILS # (AUTO) 4.1 K/uL (1.8-7.7); NEUTROPHILS % (AUTO) 69.5 % (42.2-75.2); PLATELET COUNT (AUTO) 181 K/uL (140-450); RED BLOOD CELL COUNT(AUTO) 3.65 MIL/uL (4.20-6.10); RED CELL DISTRIBUTION WIDTH 14.3 % (11.6-13.7); WHITE BLOOD COUNT (AUTO) 5.9 K/uL (4.8-10.8)
--- NOTE | 2023-01-04 07:16 | NUR ---
ENDORSED TO DAY SHIFT NURSE CALIXTO FOR CONTINUITY OF CARE. PATIENT IS STABLE.
[2023-01-04 07:29] LABS: ASPARTATE AMINOTRANSFERASE 16 U/L (15-37); CARBON DIOXIDE 35.9 mmol/L (21-32); CHLORIDE 99 mmol/L (98-107); CREATININE 0.5 mg/dL (0.6-1.3); GLUCOSE 82 mg/dL (74-106); LACTATE DEHYDROGENASE 124 U/L (85-227); MAGNESIUM 2.1 mg/dL (1.8-2.4); POTASSIUM 3.9 mmol/L (3.5-5.1); SODIUM SERUM 137 mmol/L (136-145); TOTAL BILIRUBIN 0.6 mg/dL (0.0-1.0); UREA NITROGEN, BLOOD 15 mg/dL (7-18)
[2023-01-04 08:00] VITALS: BP 153/68
[2023-01-04] MEDS: IPRATROPIUM 0.02% 0.5 MG/2.5 ML NEBU INH SCH ×2 (08:38→21:43)
[2023-01-04] MEDS: THEOPHYLLINE 300 MG TABER PO SCH (09:00)
[2023-01-04] MEDS: lisinopriL 5 MG TAB PO SCH (09:15)
[2023-01-04] MEDS: VITAMIN D 400 IU TAB PO SCH (09:15)
[2023-01-04] MEDS: PANTOPRAZOLE 40 MG INJ VIAL IVP SCH (09:16)
[2023-01-04] MEDS: TAMSULOSIN 0.4 MG CAP PO SCH ×2 (09:16→20:31)
[2023-01-04] MEDS: CHOLECALCIFEROL 1,000 IU TAB PO SCH (09:16)
[2023-01-04] MEDS: ASPIRIN 81 MG TAB.CHEW PO SCH (09:17)
[2023-01-04] MEDS: CALCIUM CARBONATE 500 MG TAB PO SCH (09:17)
[2023-01-04] MEDS: ASCORBIC ACID 500 MG TAB PO SCH (09:17)
[2023-01-04] MEDS: AZITHROMYCIN 250 MG TAB PO SCH (09:18)
[2023-01-04] MEDS: DOCUSATE SODIUM 100 MG GELCAP PO SCH ×2 (09:18→20:48)
[2023-01-04] MEDS: ZINC SULF 220 MG CAP PO SCH ×2 (09:18→20:30)
[2023-01-04] MEDS: GABAPENTIN 100 MG CAP PO SCH ×2 (09:19→20:30)
[2023-01-04] MEDS: ISOSORBIDE DINITRATE 10 MG TAB PO SCH ×2 (09:20→20:30)
[2023-01-04] MEDS: FINASTERIDE 5 MG TAB PO SCH (09:20)
[2023-01-04] MEDS: ESCITALOPRAM 20 MG TAB PO SCH ×2 (09:20→20:31)
[2023-01-04] MEDS: carvediloL 6.25 MG TAB PO SCH ×2 (09:21→20:30)
[2023-01-04] MEDS: LACTULOSE 20 GM/30 ML UDC PO SCH ×2 (09:22→20:32)
[2023-01-04] MEDS: POTASSIUM CHLORIDE 8 MEQ TABER PO SCH (09:27)
[2023-01-04] MEDS: APIXABAN 2.5 MG TAB PO SCH ×2 (09:28→20:37)
[2023-01-04] MEDS: REMDESIVIR. 100 MG in NACL 0.9% 100 ML IV SCH (11:00)
[2023-01-04 12:00] VITALS: BP 133/63
[2023-01-04 16:00] VITALS: BP 136/65
--- NOTE | 2023-01-04 19:30 | NUR ---
RECEIVED REPORT FROM DAY SHIFT RN CALIXTO FOR CONTINUITY OF CARE. PT IS ALERT AND ORIENTATED. PT IS ON 3L NC NOT IN ANY LABORED BREATHING. PT HAS 22 GAUGE ON LEFT FOREARM WITH NS 50 CC/HR. PT IS NPO EXCEPT MEDS. POC DISCUSSED. WILL CONTINUE TO MONITOR THE PT.
[2023-01-04 20:00] VITALS: BP 146/70
[2023-01-04] MEDS: SIMVASTATIN 40 MG TAB PO SCH (20:31)
--- NOTE | 2023-01-04 20:35 | NUR ---
SCHEDULE MEDICATIONS GIVEN. NO ADVERSE REACTION NOTED. WILL CONTINUE TO MONITOR THE PT.
[2023-01-05] VITALS: BP 137/79
--- NOTE | 2023-01-05 00:15 | NUR ---
PT WAS REPOSITION. PT IS DOING WELL AND NOT IN ANY DISTRESS. NO COMPLAINS. WILL CONTINUE TO MONITOR THE PT.
[2023-01-05 04:00] VITALS: BP 152/75
--- NOTE | 2023-01-05 04:10 | NUR ---
PT WAS REPOSITION. PT IS DOING WELL AND NOT IN ANY DISTRESS. NO COMPLAINS. WILL CONTINUE TO MONITOR THE PT.
--- NOTE | 2023-01-05 07:20 | NUR ---
ENDORSED PT TO DAY SHIFT RN FOR CONTINUITY OF CARE. PT IS STABLE.
[2023-01-05 07:45] LABS: BASOPHILS % (AUTO) 0.3 % (0.0-2.0); EOSINOPHILS % (AUTO) 0.3 % (0.0-4.0); HEMATOCRIT 30.9 % (36-52); HEMOGLOBIN 10.4 g/dL (12.0-18.0); LYMPHOCYTES # (AUTO) 1.5 K/uL (2.0-11.5); LYMPHOCYTES % (AUTO) 22.6 % (20.5-51.1); MEAN CORPUSCULAR HEMOGLOBIN 29 pg (27-31); MEAN CORPUSCULAR HGB CONC 34 g/dL (33-37); MEAN CORPUSCULAR VOLUME 85.7 fL (80-94); MONOCYTES # (AUTO) 0.5 K/uL (0.8-1.0); MONOCYTES % (AUTO) 7.5 % (1.7-9.3); NEUTROPHILS # (AUTO) 4.6 K/uL (1.8-7.7); NEUTROPHILS % (AUTO) 69.3 % (42.2-75.2); PLATELET COUNT (AUTO) 191 K/uL (140-450); RED BLOOD CELL COUNT(AUTO) 3.61 MIL/uL (4.20-6.10); RED CELL DISTRIBUTION WIDTH 13.9 % (11.6-13.7); WHITE BLOOD COUNT (AUTO) 6.6 K/uL (4.8-10.8)
[2023-01-05 08:00] VITALS: BP 159/63
[2023-01-05 08:31] LABS: ALBUMIN 3.1 g/dL (3.4-5.0); ANION GAP 9.3 (8-16); ASPARTATE AMINOTRANSFERASE 19 U/L (15-37); CARBON DIOXIDE 32.7 mmol/L (21-32); CHLORIDE 96 mmol/L (98-107); CREATININE 0.5 mg/dL (0.6-1.3); GLUCOSE 80 mg/dL (74-106); LACTATE DEHYDROGENASE 140 U/L (85-227); PHOSPHORUS 1.9 mg/dL (2.5-4.9); SODIUM SERUM 134 mmol/L (136-145); TOTAL BILIRUBIN 0.4 mg/dL (0.0-1.0); UREA NITROGEN, BLOOD 12 mg/dL (7-18)
[2023-01-05] MEDS: IPRATROPIUM 0.02% 0.5 MG/2.5 ML NEBU INH SCH (08:55)
[2023-01-05] MEDS: THEOPHYLLINE 300 MG TABER PO SCH (09:00)
[2023-01-05] MEDS: PANTOPRAZOLE 40 MG INJ VIAL IVP SCH (09:00)
[2023-01-05] MEDS: LACTULOSE 20 GM/30 ML UDC PO SCH ×2 (09:49→21:56)
[2023-01-05] MEDS: ASCORBIC ACID 500 MG TAB PO SCH (09:49)
[2023-01-05] MEDS: ISOSORBIDE DINITRATE 10 MG TAB PO SCH ×2 (09:49→21:56)
[2023-01-05] MEDS: CHOLECALCIFEROL 1,000 IU TAB PO SCH (09:50)
[2023-01-05] MEDS: carvediloL 6.25 MG TAB PO SCH ×2 (09:50→21:56)
[2023-01-05] MEDS: lisinopriL 5 MG TAB PO SCH (09:50)
[2023-01-05] MEDS: GABAPENTIN 100 MG CAP PO SCH ×2 (09:51→21:55)
[2023-01-05] MEDS: ESCITALOPRAM 20 MG TAB PO SCH ×2 (09:51→21:56)
[2023-01-05] MEDS: VITAMIN D 400 IU TAB PO SCH (09:51)
[2023-01-05] MEDS: APIXABAN 2.5 MG TAB PO SCH ×2 (09:52→21:57)
[2023-01-05] MEDS: TAMSULOSIN 0.4 MG CAP PO SCH ×2 (09:52→21:56)
[2023-01-05] MEDS: ZINC SULF 220 MG CAP PO SCH ×2 (09:53→21:55)
[2023-01-05] MEDS: ASPIRIN 81 MG TAB.CHEW PO SCH (09:53)
[2023-01-05] MEDS: AZITHROMYCIN 250 MG TAB PO SCH (09:53)
[2023-01-05] MEDS: FINASTERIDE 5 MG TAB PO SCH (09:53)
[2023-01-05] MEDS: POTASSIUM CHLORIDE 8 MEQ TABER PO SCH (09:54)
[2023-01-05] MEDS: DOCUSATE SODIUM 100 MG GELCAP PO SCH ×2 (09:59→21:56)
[2023-01-05] MEDS: CALCIUM CARBONATE 500 MG TAB PO SCH (09:59)
[2023-01-05] MEDS: REMDESIVIR. 100 MG in NACL 0.9% 100 ML IV SCH (11:00)
[2023-01-05] MEDS ORDERED: CEPH-588 PO (11:01)
[2023-01-05] MEDS ORDERED: DEC1 PO (11:01)
[2023-01-05] MEDS ORDERED: AZIT250T3 PO (11:01)
[2023-01-05 12:00] VITALS: BP 154/71
--- NOTE | 2023-01-05 15:09 | NUR ---
01/05/23 RD INITIAL ASSESSMENT COMPLETED PLEASE REFER TO NUTRITION ASSESSMENT UNDER CARE ACTIVITY FOR ESTIMATED NUTRITIONAL NEEDS. 1. CONTINUE CARDIAC DIET, TOLERATED 2. MONITOR LAB VALUES. 3. RD TO FOLLOW-UP 3-5 DAYS, MODERATE RISK REVIEWED BY LEIGHTON WILSON RD
[2023-01-05 16:00] VITALS: BP 153/73
--- NOTE | 2023-01-05 16:42 | NUR ---
DC PLANNING: CALLED PT'S DAUGHTER SPOKE WITH RAMAKRISHNA DISCUSSED THE DC PLAN FOR HER FATHER, NOTIFIED HER THAT UNABLE TO FIND ANY ACCEPTING FACILITY FOR COVID PATIENT. FAXED [facility] , [facility], [facility], SYDNIE MACK , [facility]. NO ONE IS ACCEPTING COVID PATIENT. PER RAMAKRISHNA SHE IS SICK WITH COVID, WILL CHECK TOMORROW HOW HE IS DOING AND IF HE GETS BETTER WILL PLAN TO TAKE HIM HOME. SHE STATED SHE HAS A HOSPITAL BED. CM TO FOLLOW Addendum: 01/09/23 at 1427 by MACIEL CAZARES PT WILL BE ACCEPTED AT [facility] LOCATED AT [address] [place] [address]. PT WILL LEAVE TOMORROW 01/10/2023. TRANSPORTATION WILL BE SET UP WITH [facility] AUTH# [id number] PROVIDED BY [facility]UR[facility] AT [facility].
[2023-01-05] MEDS: ALBUTEROL 0.083% 2.5 MG/3 ML NEBU INH PRN (18:02)
[2023-01-05] MEDS: NACL 0.9% 1,000 ML IV SCH (18:35)
--- NOTE | 2023-01-05 19:02 | NUR ---
REPORT GIVEN TO NIGHTSHIFT NURSE FOR CONTINUITY OF CARE.
--- NOTE | 2023-01-05 19:10 | NUR ---
RECEIVED REPORT FROM DAY SHIFT RN FOR CONTINUITY OF CARE. PT IS RESTING IN BED NOT IN ANY DISTRESS. PT IS AWAKE AND ALERT EATING DINNER BY BEDSIDE. PT IS ON NC 3L SATING 100%. PT HAS LEFT HAND 20 GAUGE RUNNING NS 50 CC/HR. POC DISCUSSED. WILL CONTINUE TO MONITOR THE PT.
[2023-01-05 20:00] VITALS: BP 154/68
[2023-01-05] MEDS: SIMVASTATIN 40 MG TAB PO SCH (21:55)
--- NOTE | 2023-01-06 01:51 | NUR ---
PT PULLED OUT IV. CATHETER INTACT. NEW IV INSERTED ON LEFT HAND 20 GAUGE. PT WAS CLEANED AND CHANGED.
[2023-01-06 04:00] VITALS: BP 158/68
--- NOTE | 2023-01-06 04:00 | NUR ---
VITAL SIGNS TAKEN AND STABLE. PT IS NOT IN ANY DISTRESS. HAS NO COMPLAINS AT THIS TIME. WILL CONTINUE TO MONITOR THE PT.
[2023-01-06] MEDS: IPRATROPIUM 0.02% 0.5 MG/2.5 ML NEBU INH SCH ×2 (05:41→20:47)
[2023-01-06 07:14] LABS: BASOPHILS % (AUTO) 0.3 % (0.0-2.0); EOSINOPHILS % (AUTO) 0.2 % (0.0-4.0); HEMATOCRIT 30.1 % (36-52); LYMPHOCYTES # (AUTO) 1.5 K/uL (2.0-11.5); MEAN CORPUSCULAR HEMOGLOBIN 29 pg (27-31); MEAN CORPUSCULAR HGB CONC 33 g/dL (33-37); MEAN CORPUSCULAR VOLUME 85.7 fL (80-94); MONOCYTES # (AUTO) 0.5 K/uL (0.8-1.0); MONOCYTES % (AUTO) 7.2 % (1.7-9.3); NEUTROPHILS # (AUTO) 4.3 K/uL (1.8-7.7); NEUTROPHILS % (AUTO) 68.3 % (42.2-75.2); PLATELET COUNT (AUTO) 184 K/uL (140-450); RED BLOOD CELL COUNT(AUTO) 3.51 MIL/uL (4.20-6.10); WHITE BLOOD COUNT (AUTO) 6.3 K/uL (4.8-10.8)
[2023-01-06 07:19] LABS: ALBUMIN 2.5 g/dL (3.4-5.0); ANION GAP 8.3 (8-16); ASPARTATE AMINOTRANSFERASE 15 U/L (15-37); CARBON DIOXIDE 32.1 mmol/L (21-32); CHLORIDE 99 mmol/L (98-107); CREATININE 0.5 mg/dL (0.6-1.3); GLUCOSE 78 mg/dL (74-106); LACTATE DEHYDROGENASE 120 U/L (85-227); MAGNESIUM 2.1 mg/dL (1.8-2.4); POTASSIUM 3.4 mmol/L (3.5-5.1); SODIUM SERUM 136 mmol/L (136-145); TOTAL BILIRUBIN 0.4 mg/dL (0.0-1.0); UREA NITROGEN, BLOOD 10 mg/dL (7-18)
--- NOTE | 2023-01-06 07:40 | NUR ---
RECEIVED PT ON 3L NASAL CANNULA. SATURATION 95%, BREATH SOUNDS WERE CLEAR. NO SOB OR DISTRESS NOTED. WILL CONTINUE TO MONITOR.
[2023-01-06 08:00] VITALS: BP 161/83
[2023-01-06] MEDS: CHOLECALCIFEROL 1,000 IU TAB PO SCH (09:00)
[2023-01-06] MEDS: TAMSULOSIN 0.4 MG CAP PO SCH ×2 (09:00→20:37)
[2023-01-06] MEDS: THEOPHYLLINE 300 MG TABER PO SCH (09:00)
[2023-01-06] MEDS: CALCIUM CARBONATE 500 MG TAB PO SCH (09:00)
[2023-01-06] MEDS: PANTOPRAZOLE 40 MG INJ VIAL IVP SCH (09:43)
[2023-01-06] MEDS: VITAMIN D 400 IU TAB PO SCH (09:46)
[2023-01-06] MEDS: ASPIRIN 81 MG TAB.CHEW PO SCH (09:46)
[2023-01-06] MEDS: ASCORBIC ACID 500 MG TAB PO SCH (09:47)
[2023-01-06] MEDS: FINASTERIDE 5 MG TAB PO SCH (09:48)
[2023-01-06] MEDS: GABAPENTIN 100 MG CAP PO SCH ×2 (09:48→20:33)
[2023-01-06] MEDS: ESCITALOPRAM 20 MG TAB PO SCH ×2 (09:48→20:34)
[2023-01-06] MEDS: AZITHROMYCIN 250 MG TAB PO SCH (09:49)
[2023-01-06] MEDS: ISOSORBIDE DINITRATE 10 MG TAB PO SCH ×2 (09:49→20:36)
[2023-01-06] MEDS: APIXABAN 2.5 MG TAB PO SCH ×2 (09:54→20:33)
[2023-01-06] MEDS: LACTULOSE 20 GM/30 ML UDC PO SCH ×2 (10:08→20:36)
[2023-01-06] MEDS: DOCUSATE SODIUM 100 MG GELCAP PO SCH ×2 (10:08→20:33)
[2023-01-06] MEDS: carvediloL 6.25 MG TAB PO SCH ×2 (10:08→20:36)
[2023-01-06] MEDS: ZINC SULF 220 MG CAP PO SCH ×2 (10:09→20:35)
[2023-01-06] MEDS: POTASSIUM CHLORIDE 8 MEQ TABER PO SCH (10:09)
[2023-01-06] MEDS: lisinopriL 5 MG TAB PO SCH (10:10)
[2023-01-06 14:09] VITALS: BP 124/65
--- NOTE | 2023-01-06 14:32 | NUR ---
SCREEN FOR LOW IRINEO SCALE AT RISK, CONTINUE TO FOLLOW PRESSURE ULCER PREVENTION INTERVENTIONS. -TURN AND REPOSITION PATIENT Q 2H, ASSIST IF NEEDED -ASSESS AND MONITOR SKIN CONDITION DURING POSITION CHANGES -OFFLOAD BILATERAL HEELS BY PLACING PILLOWS UNDER CALVES AT ALL TIMES, UNLESS OTHERWISE CONTRAINDICATED -PRESSURE REDISTRIBUTION BY PLACING PILLOWS AND OFFLOADING SACRALCOCCYX -KEEP SKIN CLEAN AND DRY AT ALL TIMES.
[2023-01-06 16:00] VITALS: BP 144/60
[2023-01-06] MEDS: REMDESIVIR. 100 MG in NACL 0.9% 100 ML IV SCH (16:58)
[2023-01-06] MEDS: NACL 0.9% 1,000 ML IV SCH (17:00)
--- NOTE | 2023-01-06 19:20 | NUR ---
RECEIVED REPORT FROM DAY SHIFT RN FOR CONTINUITY OF CARE. PT IS AWAKE AND ALERT. PT IS ON NC 2L SATING 95%. PT NOT IN ANY DISTRESS. POC OF CARE DISCUSSED. WILL CONTINUE TO MONITOR THE PT.
[2023-01-06 20:00] VITALS: BP 166/78
[2023-01-06] MEDS: SIMVASTATIN 40 MG TAB PO SCH (20:34)
[2023-01-06] MEDS: ALBUTEROL 0.083% 2.5 MG/3 ML NEBU INH PRN (20:48)
--- NOTE | 2023-01-07 01:00 | NUR ---
PT WAS CLEANED AND CHANGED. TOLERATED IT WELL. NO OTHER COMPLAINS. WILL CONTINUE TO MONITOR THE PT.
[2023-01-07 04:00] VITALS: BP 154/64
--- NOTE | 2023-01-07 04:30 | NUR ---
CHECKED ON PT. PT IS AWAKE AND NOT IN ANY DISTRESS. PT WANTED SOME WATER AND PROVIDED. PT FEELS SHORT OF BREATH AND WANTS BREATHING TREATMENT. WILL CALL RT. NO OTHER COMPLAINS. WILL CONTINUE TO MONITOR THE PT.
[2023-01-07] MEDS: ALBUTEROL 0.083% 2.5 MG/3 ML NEBU INH PRN (04:45)
[2023-01-07] MEDS: IPRATROPIUM 0.02% 0.5 MG/2.5 ML NEBU INH SCH ×3 (05:47→20:55)
--- NOTE | 2023-01-07 07:20 | NUR ---
ENDORSED PT TO DAY SHIFT RN FOR CONTINUITY OF CARE. PT IS STABLE.
[2023-01-07 07:29] LABS: BASOPHILS % (AUTO) 0.3 % (0.0-2.0); EOSINOPHILS % (AUTO) 0.3 % (0.0-4.0); HEMATOCRIT 30.7 % (36-52); HEMOGLOBIN 10.4 g/dL (12.0-18.0); LYMPHOCYTES % (AUTO) 27.8 % (20.5-51.1); MEAN CORPUSCULAR HEMOGLOBIN 29 pg (27-31); MEAN CORPUSCULAR HGB CONC 34 g/dL (33-37); MEAN CORPUSCULAR VOLUME 84.7 fL (80-94); MONOCYTES # (AUTO) 0.6 K/uL (0.8-1.0); MONOCYTES % (AUTO) 7.9 % (1.7-9.3); NEUTROPHILS # (AUTO) 4.7 K/uL (1.8-7.7); NEUTROPHILS % (AUTO) 63.7 % (42.2-75.2); PLATELET COUNT (AUTO) 192 K/uL (140-450); RED BLOOD CELL COUNT(AUTO) 3.62 MIL/uL (4.20-6.10); WHITE BLOOD COUNT (AUTO) 7.4 K/uL (4.8-10.8)
[2023-01-07 07:56] LABS: ALBUMIN 2.5 g/dL (3.4-5.0); ANION GAP 5.3 (8-16); ASPARTATE AMINOTRANSFERASE 12 U/L (15-37); CARBON DIOXIDE 35.5 mmol/L (21-32); CHLORIDE 101 mmol/L (98-107); CREATININE 0.6 mg/dL (0.6-1.3); GLUCOSE 85 mg/dL (74-106); LACTATE DEHYDROGENASE 138 U/L (85-227); MAGNESIUM 2.2 mg/dL (1.8-2.4); POTASSIUM 3.8 mmol/L (3.5-5.1); SODIUM SERUM 138 mmol/L (136-145); TOTAL BILIRUBIN 0.3 mg/dL (0.0-1.0); UREA NITROGEN, BLOOD 8 mg/dL (7-18)
[2023-01-07 08:00] VITALS: BP 173/83
[2023-01-07] MEDS: TAMSULOSIN 0.4 MG CAP PO SCH ×2 (09:00→20:55)
[2023-01-07] MEDS: VITAMIN D 400 IU TAB PO SCH (09:00)
[2023-01-07] MEDS: THEOPHYLLINE 300 MG TABER PO SCH (09:00)
[2023-01-07] MEDS: PANTOPRAZOLE 40 MG INJ VIAL IVP SCH (10:34)
[2023-01-07] MEDS: LACTULOSE 20 GM/30 ML UDC PO SCH ×2 (10:35→20:57)
[2023-01-07] MEDS: carvediloL 6.25 MG TAB PO SCH ×3 (11:00→21:00)
[2023-01-07] MEDS: POTASSIUM CHLORIDE 8 MEQ TABER PO SCH (11:01)
[2023-01-07] MEDS: GABAPENTIN 100 MG CAP PO SCH ×2 (11:02→20:56)
[2023-01-07] MEDS: ASCORBIC ACID 500 MG TAB PO SCH (11:03)
[2023-01-07] MEDS: ESCITALOPRAM 20 MG TAB PO SCH ×2 (11:03→20:55)
[2023-01-07] MEDS: ZINC SULF 220 MG CAP PO SCH ×2 (11:03→20:55)
[2023-01-07] MEDS: CHOLECALCIFEROL 1,000 IU TAB PO SCH (11:06)
[2023-01-07] MEDS: DOCUSATE SODIUM 100 MG GELCAP PO SCH ×2 (11:06→20:56)
[2023-01-07] MEDS: AZITHROMYCIN 250 MG TAB PO SCH (11:07)
[2023-01-07] MEDS: lisinopriL 5 MG TAB PO SCH (11:08)
[2023-01-07] MEDS: ISOSORBIDE DINITRATE 10 MG TAB PO SCH ×2 (11:09→20:57)
[2023-01-07] MEDS: ASPIRIN 81 MG TAB.CHEW PO SCH (11:09)
[2023-01-07] MEDS: FINASTERIDE 5 MG TAB PO SCH (11:10)
[2023-01-07] MEDS: CALCIUM CARBONATE 500 MG TAB PO SCH (11:11)
--- NOTE | 2023-01-07 11:17 | NUR ---
DAYSHIFT NURSE PULLED ATROVENT TX AND ASKED RT TO GIVE TO PATIENT EVEN THOUGH TX NOT CURRENTLY DUE.
[2023-01-07] MEDS: APIXABAN 2.5 MG TAB PO SCH ×2 (11:21→20:58)
[2023-01-07] MEDS: NACL 0.9% 1,000 ML IV SCH (11:25)
[2023-01-07] MEDS: REMDESIVIR. 100 MG in NACL 0.9% 100 ML IV SCH (11:26)
[2023-01-07] MEDS ORDERED: hydrALAZINE 20 MG/ML VIAL IVP PRN (11:45)
--- NOTE | 2023-01-07 19:28 | NUR ---
ENDORSE PATIENT IN STABLE CONDITION TO PM SHIFT NURSE WHILE IV INFUSING VIA L. WRIST 20G PIV SITE @50ML/HR.
--- NOTE | 2023-01-07 19:29 | NUR ---
RECEIVED REPORT FROM NAHUM RIGGS FOR CONTINUITY OF CARE. PT AWAKE ON HIGH FOWLERS IN BED. ON 2 L NC SATTING AT 98%. RESPIRATIONS EVEN AND UNLABORED. SOMMER CATHETER DRAINING TO GRAVITY. IV SITE ON LEFT WRIST INFUSING IVF. ON DROPLET PRECAUTIONS FOR COVID. POC DISCUSSED WITH PT AND NAHUM ARSHAD. CALL LIGHT WITHIN REACH. SAFETY PRECAUTIONS IN PLACE.
[2023-01-07 20:00] VITALS: BP 134/65
[2023-01-07] MEDS: SIMVASTATIN 40 MG TAB PO SCH (20:56)
--- NOTE | 2023-01-07 20:57 | NUR ---
ADMINISTERED DUE MEDS. NON-ADMIT COREG DUE TO LOW HR. RT AT BEDSIDE. PT RECEIVING BREATHING TREATMENT.
[2023-01-08 04:00] VITALS: BP 139/71
--- NOTE | 2023-01-08 05:21 | NUR ---
PT SLEEPING. CHEST RISING AND FALLING WITH NO ACUTE DISTRESS NOTED. SATTING AT 97%. SAFETY PRECAUTIONS IN PLACE.
[2023-01-08] MEDS: NACL 0.9% 1,000 ML IV SCH (05:43)
--- NOTE | 2023-01-08 07:08 | NUR ---
GAVE BEDSIDE REPORT TO NAHUM RIGGS FOR CONTINUITY OF CARE. PT IS STABLE.
--- NOTE | 2023-01-08 07:40 | NUR ---
GAVE BID TX TO PT ORDERED. NO DISTRESS NOTED. PT SATING 97% HR 73
[2023-01-08 08:00] VITALS: BP 122/71
[2023-01-08] MEDS: THEOPHYLLINE 300 MG TABER PO SCH (09:00)
[2023-01-08] MEDS: PANTOPRAZOLE 40 MG INJ VIAL IVP SCH (10:08)
[2023-01-08] MEDS: LACTULOSE 20 GM/30 ML UDC PO SCH (10:13)
[2023-01-08] MEDS: FINASTERIDE 5 MG TAB PO SCH (10:14)
[2023-01-08] MEDS: ISOSORBIDE DINITRATE 10 MG TAB PO SCH (10:15)
[2023-01-08] MEDS: lisinopriL 5 MG TAB PO SCH (10:17)
[2023-01-08] MEDS: ESCITALOPRAM 20 MG TAB PO SCH (10:18)
[2023-01-08] MEDS: DOCUSATE SODIUM 100 MG GELCAP PO SCH (10:19)
[2023-01-08] MEDS: ASPIRIN 81 MG TAB.CHEW PO SCH (10:19)
[2023-01-08] MEDS: VITAMIN D 400 IU TAB PO SCH (10:20)
[2023-01-08] MEDS: POTASSIUM CHLORIDE 8 MEQ TABER PO SCH (10:21)
[2023-01-08] MEDS: carvediloL 6.25 MG TAB PO SCH (10:21)
[2023-01-08] MEDS: CHOLECALCIFEROL 1,000 IU TAB PO SCH (10:22)
[2023-01-08] MEDS: CALCIUM CARBONATE 500 MG TAB PO SCH (10:22)
[2023-01-08] MEDS: ASCORBIC ACID 500 MG TAB PO SCH (10:23)
[2023-01-08] MEDS: TAMSULOSIN 0.4 MG CAP PO SCH (10:26)
[2023-01-08] MEDS: GABAPENTIN 100 MG CAP PO SCH (10:26)
[2023-01-08] MEDS: APIXABAN 2.5 MG TAB PO SCH (10:29)
--- NOTE | 2023-01-08 12:43 | NUR ---
RT RECEIVED CALLED FROM RN STATING PT IS IN DISTRESS AND IS SATING IN THE 80S. RT GOT TO ROOM WITH NO RN AT BEDSIDE. PT WAS IN NO RESP DISTRESS, EATING HIS LUNCH AND SATING 93% ON 3L NC. PT DID REQUESTED BREATHING TX. TX WAS GIVEN. WILL CONTINUE TO MONITOR.
[2023-01-08] MEDS: ALBUTEROL 0.083% 2.5 MG/3 ML NEBU INH PRN (12:47)
[2023-01-08 15:58] VITALS: BP 122/71
[2023-01-08 16:00] VITALS: BP 134/58
--- NOTE | 2023-01-08 19:30 | NUR ---
HAND-OFF REPORT RECEIVED FROM KEELY SIDHU AND FOLLOWED WITH BEDSIDE ROUNDS FOR CONTINUITY OF CARE. PT RECEIVED IN COVID ISOLATION A/OX4. VERY COOPERATIVE. DENIES PBD PAIN AT THIS TIME. "THE ONLY THING I CALL ABOUT ARE MY BREATHING TREATMENTS...IT GETS PRETTY STUFFY IN HERE YOU KNOW." STATED ROOM TEMP WAS "OK". SOMMER CATH TO GRAVITY FLOW. 16 MACEDONIAN DRAINING GOLDENROD COLORED, CLEAR URINE. NS @ 50ML/H. SMALL DOTS OF SCABBING APPEARS EVENLY DISPERSED OVER BILAT. LOWER LIMBS. BILAT +1EDEMA RELEGATED TO FEET ONLY.ANKLES AND LEGS OK. SKIN ON FEET FLAKY AND TOE NAILS GNARLED. DENIES PAIN. IN CHEST OR ABD. REMAINS BED BOUND. PLAN: D/C HOME AFTER HOME HEALTH EVAL. RELINQUISHED CARE OF PT AT THIS TIME. Addendum: 01/09/23 at 1050 by Agency 02 NAHUM SIDHU CORRECTION: DID NOT RELINQUISHED CARE OF PT AT THIS TIME. TO THE CONTRARY. "ACCEPTED CARE OF PT AT THIS TIME.
--- NOTE | 2023-01-08 19:50 | NUR ---
ENDORSE PATIENT IN STABLE CONDITION TO PM SHIFT NURSE WHILE IV INFUSING VIA L. WRIST 20G PIV SITE @50ML/HR, PATIENT ON 2 LITER OXYGEN VIA NC
[2023-01-08 21:00] VITALS: BP 158/77
[2023-01-08] MEDS: SIMVASTATIN 40 MG TAB PO SCH (21:00)
[2023-01-08] MEDS: IPRATROPIUM 0.02% 0.5 MG/2.5 ML NEBU INH SCH (21:04)
--- NOTE | 2023-01-09 | NUR ---
PT CONTINUES TO DENY PAIN. STATES BREATHING TREATMENTS EFFECTIVE.
[2023-01-09] MEDS: LACTULOSE 20 GM/30 ML UDC PO SCH ×3 (00:41→20:41)
[2023-01-09] MEDS: DOCUSATE SODIUM 100 MG GELCAP PO SCH ×3 (00:42→20:39)
[2023-01-09] MEDS: carvediloL 6.25 MG TAB PO SCH ×3 (00:42→20:53)
[2023-01-09] MEDS: TAMSULOSIN 0.4 MG CAP PO SCH ×3 (00:44→20:39)
[2023-01-09] MEDS: ISOSORBIDE DINITRATE 10 MG TAB PO SCH ×3 (00:47→20:38)
[2023-01-09] MEDS: ESCITALOPRAM 20 MG TAB PO SCH ×3 (00:48→20:39)
[2023-01-09] MEDS: GABAPENTIN 100 MG CAP PO SCH ×3 (00:52→20:40)
[2023-01-09] MEDS: APIXABAN 2.5 MG TAB PO SCH ×3 (01:00→20:41)
[2023-01-09] MEDS: ALBUTEROL 0.083% 2.5 MG/3 ML NEBU INH PRN (01:30)
[2023-01-09 04:00] VITALS: BP 144/68
--- NOTE | 2023-01-09 07:30 | NUR ---
HAND-OFF REPORT TO DAY SHIFT NURSES. REPORTED D/C PLAN IS PENDING HOME HEALTH EVAL REPORTED TO ME BY DAYSHIFT NURSE. SOMMER CATH OUTPUT 1750 ML FOR THIS SHIFT. RELINQUISHED CARE OF PT AT THIS TIME.
[2023-01-09 08:00] VITALS: BP 144/76
--- NOTE | 2023-01-09 08:00 | NUR ---
Patient's Plan of Care was discussed and reviewed with NAPOLEON: REAL
--- NOTE | 2023-01-09 08:00 | NUR ---
MORNING ATROVENT GIVEN TO PT. RN CLEARED TX FROM EMAR.
[2023-01-09] MEDS: IPRATROPIUM 0.02% 0.5 MG/2.5 ML NEBU INH SCH (09:00)
[2023-01-09] MEDS: PANTOPRAZOLE 40 MG INJ VIAL IVP SCH (09:00)
[2023-01-09] MEDS: POTASSIUM CHLORIDE 8 MEQ TABER PO SCH (09:01)
[2023-01-09] MEDS: ASPIRIN 81 MG TAB.CHEW PO SCH (09:02)
[2023-01-09] MEDS: lisinopriL 5 MG TAB PO SCH (09:04)
[2023-01-09] MEDS: CALCIUM CARBONATE 500 MG TAB PO SCH (09:04)
[2023-01-09] MEDS: FINASTERIDE 5 MG TAB PO SCH (09:05)
[2023-01-09] MEDS: CHOLECALCIFEROL 1,000 IU TAB PO SCH (09:10)
[2023-01-09] MEDS: THEOPHYLLINE 300 MG TABER PO SCH (09:12)
[2023-01-09 09:27] LABS: BASOPHILS # (AUTO) 0.1 K/uL (0.00-0.22); BASOPHILS % (AUTO) 0.7 % (0.0-2.0); EOSINOPHILS # (AUTO) 0.1 K/uL (0-0.4); EOSINOPHILS % (AUTO) 1.2 % (0.0-4.0); HEMATOCRIT 33.7 % (36-52); HEMOGLOBIN 11.2 g/dL (12.0-18.0); LYMPHOCYTES # (AUTO) 2.2 K/uL (2.0-11.5); LYMPHOCYTES % (AUTO) 24.2 % (20.5-51.1); MEAN CORPUSCULAR HEMOGLOBIN 29 pg (27-31); MEAN CORPUSCULAR HGB CONC 33 g/dL (33-37); MEAN CORPUSCULAR VOLUME 85.9 fL (80-94); MONOCYTES # (AUTO) 0.4 K/uL (0.8-1.0); MONOCYTES % (AUTO) 4.2 % (1.7-9.3); NEUTROPHILS # (AUTO) 6.4 K/uL (1.8-7.7); NEUTROPHILS % (AUTO) 69.7 % (42.2-75.2); PLATELET COUNT (AUTO) 212 K/uL (140-450); RED BLOOD CELL COUNT(AUTO) 3.92 MIL/uL (4.20-6.10); RED CELL DISTRIBUTION WIDTH 14.3 % (11.6-13.7); WHITE BLOOD COUNT (AUTO) 9.2 K/uL (4.8-10.8)
[2023-01-09 09:44] LABS: ANION GAP 3.2 (8-16); CARBON DIOXIDE 35.5 mmol/L (21-32); CHLORIDE 100 mmol/L (98-107); CREATININE 0.6 mg/dL (0.6-1.3); GLUCOSE 120 mg/dL (74-106); POTASSIUM 3.7 mmol/L (3.5-5.1); SODIUM SERUM 135 mmol/L (136-145); UREA NITROGEN, BLOOD 7 mg/dL (7-18)
[2023-01-09] MEDS: NACL 0.9% 1,000 ML IV SCH ×2 (10:28→22:35)
[2023-01-09 16:00] VITALS: BP 132/61
--- NOTE | 2023-01-09 19:20 | NUR ---
ENDORSED PT TO RAILROAD COMMISSIONER NURSE FOR CONTINUITY OF CARE. PT IS STABLE.
[2023-01-09] MEDS: ALBUTEROL SULFATE/IPRATROPIU 3 ML SOL IH SCH (19:21)
--- NOTE | 2023-01-09 19:21 | NUR ---
RECEIVED REPORT FROM DAY SHIFT NURSE HAYDEE FOR CONTINUITY OF CARE. PT AWAKE, RECEIVING BREATHING TREATMENT FROM RT. ON 3L NC SATTING AT 98% WITH NO ACUTE DISTRESS NOTED. SOMMER CATHETER DRAINING TO GRAVITY. IV FLUIDS INFUSING TO LEFT WRIST. POC DISCUSSED WITH PT AND NAHUM STEVE. CALL LIGHT WITHIN REACH. SAFETY PRECAUTIONS IN PLACE.
--- NOTE | 2023-01-09 19:22 | NUR ---
Patient's Plan of Care was discussed and reviewed with NAPOLEON: VALDO
[2023-01-09 20:00] VITALS: BP 133/67
[2023-01-09] MEDS: SIMVASTATIN 40 MG TAB PO SCH (20:40)
--- NOTE | 2023-01-09 20:53 | NUR ---
ADMINISTERED DUE MEDS. NON-ADMIT COREG DUE TO HR AT 40"S.
--- NOTE | 2023-01-09 21:47 | NUR ---
RECEIVED CALL FROM LAB, RAPID COVID TEST RESULT - POSITIVE. MD WAS INFORMED. NO ORDERS RECEIVED.
[2023-01-10] MEDS: ALBUTEROL SULFATE/IPRATROPIU 3 ML SOL IH SCH ×3 (01:00→13:15)
[2023-01-10 04:00] VITALS: BP 142/67
--- NOTE | 2023-01-10 04:22 | NUR ---
DID MORNING CARE AND REPOSITIONED PT. DRAINED 1300CC CLEAR YELLOW URINE FROM SOMMER CATHETER. PT SATTING AT 98% ON 3L NC. DENIES PAIN. NO DISTRESS NOTED. SAFETY PRECAUTIONS IN PLACE.
[2023-01-10 07:03] LABS: ANION GAP 4.9 (8-16); CARBON DIOXIDE 35.4 mmol/L (21-32); CHLORIDE 100 mmol/L (98-107); CREATININE 0.6 mg/dL (0.6-1.3); GLUCOSE 92 mg/dL (74-106); POTASSIUM 4.3 mmol/L (3.5-5.1); SODIUM SERUM 136 mmol/L (136-145); UREA NITROGEN, BLOOD 8 mg/dL (7-18)
[2023-01-10 07:07] LABS: BASOPHILS % (AUTO) 0.3 % (0.0-2.0); EOSINOPHILS # (AUTO) 0.1 K/uL (0-0.4); EOSINOPHILS % (AUTO) 0.6 % (0.0-4.0); HEMATOCRIT 33.7 % (36-52); HEMOGLOBIN 11.3 g/dL (12.0-18.0); LYMPHOCYTES # (AUTO) 2.1 K/uL (2.0-11.5); LYMPHOCYTES % (AUTO) 20.7 % (20.5-51.1); MEAN CORPUSCULAR HEMOGLOBIN 29 pg (27-31); MEAN CORPUSCULAR HGB CONC 34 g/dL (33-37); MEAN CORPUSCULAR VOLUME 85.9 fL (80-94); MONOCYTES # (AUTO) 0.5 K/uL (0.8-1.0); MONOCYTES % (AUTO) 5.4 % (1.7-9.3); NEUTROPHILS # (AUTO) 7.3 K/uL (1.8-7.7); PLATELET COUNT (AUTO) 225 K/uL (140-450); RED BLOOD CELL COUNT(AUTO) 3.93 MIL/uL (4.20-6.10); RED CELL DISTRIBUTION WIDTH 14.6 % (11.6-13.7)
--- NOTE | 2023-01-10 07:17 | NUR ---
GAVE BEDSIDE REPORT TO NAPOLEON SILVERIO FOR CONTINUITY OF CARE. PT IS STABLE.
--- NOTE | 2023-01-10 07:18 | NUR ---
RECEIVED REPORT FROM GEOTHERMAL SYSTEM INSTALLER NURSE, VALDO, FOR CONTINUITY OF CARE. PT IS IN BED WATCHING TELEVISION AT THIS TIME. RESPIRATIONS ARE EVEN AND UNLABORED, ON 3L O2 VIA NC. NO SIGNS OF DISTRESS NOTED. PT IS ALERT AND ORIENTED X3, ABLE TO FOLLOW COMMANDS, VERBALIZE NEEDS. PT IS ON CARDIAC DIET, TOLERATING WELL. ABD IS NONTENDER, NONDISTENDED WITH BOWEL SOUNDS PRESENT. LAST BOWEL MOVEMENT WAS THIS MORNING. PT HAS SOMMER CATHETER IN PLACE, DRAINING YELLOW URINE. PT HAS IV TO L WRIST, 20G, INTACT AND PATENT. SKIN IS WARM, DRY, AND INTACT. DRYNESS NOTED TO BILATERAL LOWER EXTREMITIES. PT IS ON DROPLET ISOLATION, FOR COVID. CALL LIGHT WITHIN REACH. ALL SAFETY MEASURES IN PLACE.
--- NOTE | 2023-01-10 08:00 | NUR ---
Patient's Plan of Care was discussed and reviewed with NAPOLEON: REAL
[2023-01-10] MEDS: PANTOPRAZOLE 40 MG INJ VIAL IVP SCH (08:36)
[2023-01-10] MEDS: LACTULOSE 20 GM/30 ML UDC PO SCH (09:24)
[2023-01-10] MEDS: DOCUSATE SODIUM 100 MG GELCAP PO SCH (09:24)
[2023-01-10] MEDS: ASPIRIN 81 MG TAB.CHEW PO SCH (09:24)
[2023-01-10] MEDS: carvediloL 6.25 MG TAB PO SCH (09:25)
[2023-01-10] MEDS: TAMSULOSIN 0.4 MG CAP PO SCH (09:26)
[2023-01-10] MEDS: CALCIUM CARBONATE 500 MG TAB PO SCH (09:27)
[2023-01-10] MEDS: ESCITALOPRAM 20 MG TAB PO SCH (09:27)
[2023-01-10] MEDS: GABAPENTIN 100 MG CAP PO SCH (09:27)
[2023-01-10] MEDS: POTASSIUM CHLORIDE 8 MEQ TABER PO SCH (09:28)
[2023-01-10] MEDS: FINASTERIDE 5 MG TAB PO SCH (09:28)
[2023-01-10] MEDS: THEOPHYLLINE 300 MG TABER PO SCH (09:28)
[2023-01-10] MEDS: lisinopriL 5 MG TAB PO SCH (09:29)
[2023-01-10] MEDS: CHOLECALCIFEROL 1,000 IU TAB PO SCH (09:29)
[2023-01-10] MEDS: ISOSORBIDE DINITRATE 10 MG TAB PO SCH (09:32)
[2023-01-10] MEDS: APIXABAN 2.5 MG TAB PO SCH (09:39)
--- NOTE | 2023-01-10 10:24 | NUR ---
DID ROUNDS ON PT. PT RESTING AT THIS TIME. RESPIRATIONS ARE EVEN AND UNLABORED. O2 SAT AT 95%.
--- NOTE | 2023-01-10 11:17 | NUR ---
JOSÉ MIGUEL LOBATO PT WAS ACCEPTED AT [facility] LOCATED AT [address] [facility] [id number]. PT WILL BE GOING TO ROOM [address] ALFREDO. TRANSPORTATION SET UP WITH [facility] FOR A GURNEY TRANSPORT AND 3L OF O2 WITH A 1530 CLAY ARTIST TIME. NURSE SUZIE AND DAUGHTER DEBBY AWARE OF THE ABOVE INFORMATION.
--- NOTE | 2023-01-10 12:10 | NUR ---
CALLED [facility], GAVE REPORT TO LIZETH. SPOKE WITH PT DAUGHTER, RUSS, TO INFORM HER OF DISCHARGE TO [facility].
[2023-01-10 12:34] VITALS: BP 127/76
--- NOTE | 2023-01-10 15:24 | NUR ---
PT DISCHARGED TO [facility]. WITH TRANSPORTATION [facility]. REMOVED IV. IV CATHETER INTACT. REMOVED SOMMER CATHETER. PT TOLERATED WELL. WENT OVER DISCHARGE PAPERWORK WITH PT. PER PT, HE DOES NOT WISH TO SIGN PAPERWORK. STATES HE IS "TOO TIRED". GAVE PT COPY OF ALL PAPERWORK. ALL BELONGINGS TAKEN UPON DISCHARGE.
== END 2023-01-10 15:36 | DRG 871 ==
LOC: MED 15:23 → MMU 23:25 → MTU 01-02 00:12 → OBSVTOIN 01-02 11:42 → MTU 01-06 20:00
PROC: XW033E5 Introduction of Remdesivir Anti-infective into Peripheral Vein, Percutaneous Approach, New Technology Group 5 (ICD-10-PCS; principal; 2023-01-03)
DX: A41.9 Sepsis, unspecified organism (principal); J12.82 Pneumonia due to coronavirus disease 2019; J96.21 Acute and chronic respiratory failure with hypoxia; U07.1 COVID-19; E44.1 Mild protein-calorie malnutrition; N39.0 Urinary tract infection, site not specified; J44.0 Chronic obstructive pulmonary disease with (acute) lower respiratory infection; K46.0 Unspecified abdominal hernia with obstruction, without gangrene; J91.8 Pleural effusion in other conditions classified elsewhere; K56.609 Unspecified intestinal obstruction, unspecified as to partial versus complete obstruction; E78.00 Pure hypercholesterolemia, unspecified; I11.0 Hypertensive heart disease with heart failure; I25.10 Atherosclerotic heart disease of native coronary artery without angina pectoris; E87.6 Hypokalemia; K76.82 Hepatic encephalopathy; I50.9 Heart failure, unspecified; K59.00 Constipation, unspecified; Z95.1 Presence of aortocoronary bypass graft; I25.2 Old myocardial infarction; Z68.26 Body mass index [BMI] 26.0-26.9, adult; Z79.899 Other long term (current) drug therapy; Z90.49 Acquired absence of other specified parts of digestive tract; Z79.82 Long term (current) use of aspirin
CPT/HCPCS: 96365; 96366; 96367; 96375; 99285; G0378; 36415; 36600; 71045; 74250; 80048; 80053; 81001; 82140; 82150; 82550; 82553; 82803; 83036; 83605; 83615; 83690; 83735; 83880; 84100; 84439; 84443; 84484; 85025; 85379; 85610; 85651; 85730; 86140; 87040; 87081; 87086; 93005; 94640; 94664; 97110; 97112; 97116; 97163-GP; 97530; C9113; J0456; J0696; J1100; J2270; J2405; J7060; J7613; J7644; Q0092